=== PATIENT | male | born 1970 | race Caucasian/White ===

== ENCOUNTER 2020-10-02 13:29 | Emergency (ER) | payer OTHER, SELFPAY ==
--- NOTE | 2020-10-02 13:37 | ED_ITS ---
HPI - General Adult General Chief complaint: General Medical Stated complaint: covid screening Time Seen by Provider: 10/02/20 13:37 Source: patient Mode of arrival: ambulatory Limitations: no limitations History of Present Illness HPI narrative: Exposed to brother 2 days ago who tested positive COVID-19 he has antiemetic requesting COVID test. Onset (ago): day(s) (2 days ago ) Severity: mild Treatments prior to arrival: none Related Data Allergies Allergy/AdvReac Type Severity Reaction Status Date / Time iodine Allergy Unknown Verified 09/01/19 00:00 shelfish Allergy Unknown Uncoded 09/01/19 00:00 Shellfish Allergy Unknown SWELLING Uncoded 06/30/20 17:18 shellfish Allergy Unknown anaphylacti Uncoded 09/26/17 00:00 c Review of Systems Review of Systems: Constitutional: No Weight loss, No Fever, No Chills, No Night Sweats, No Fatigue, No Malaise ENT/Mouth: No Hearing loss, No Ear Pain, No Nasal Congestion, No Sinus Pain, No Hoarseness, No sore throat, No Rhinorrhea, No Swallowing Difficulty Eyes: No Eye Pain, No Swelling, No Redness, No Foreign Body, No Discharge, No Vision Changes Cardiovascular: No Chest Pain, No SOB, No Dyspnea on Exertion, No Orthopnea, No Edema, No Palpitations Respiratory: No Cough, No Sputum, No Wheezing, No Dyspnea Gastrointestinal: No Nausea, No Vomiting, No Diarrhea, No Constipation, No abdominal Pain, No Hematochezia, No Melena Musculoskeletal: No joint pain, No Myalgias, No Joint Swelling Skin: No Skin Lesions, No rash Neuro: No Weakness, No Numbness, No Paresthesias, No Loss of Consciousness, No Dizziness, No Headache Psych: No Anxiety/Panic, No Depression, No SI/HI/AH/VH, No Social Issues, Heme/Lymph: No Bruising, No Bleeding,No Lymphadenopathy Endocrine: No Polyuria, No Polydipsia, No Temperature Intolerance Yes all other systems are reviewed and are negative [facility] Social History Social History Advance Directives: No Advance Directives Information Provided: No Physical Exam Vital Signs: Vital Signs: Last Vital Signs Temp 98 F 10/02/20 13:50 Pulse 77 10/02/20 13:50 Resp 18 10/02/20 13:50 Pulse Ox 95 10/02/20 13:50 Body Mass Index 23.7 Reviewed Const: General: cooperative and healthy appearing; No acute distress or intoxicated appearing Nutritional Appearance: average body habitus Orientation/consciousness: patient oriented x3 HENMT: Head: Yes normal to inspection Ears: hearing grossly normal bilaterally Eyes: General: appearance normal, both eyes and all related structures Visual Herrera: normal visual herrera by confrontation Skin: General skin exam: no rashes or lesions noted Neuro: General: patient oriented x3 Extrem: General: Yes normal to inspection Discharge Plan Discharge Clinical Impression: Encounter for laboratory testing for COVID-19 virus Patient Disposition: Home, Self-Care Instructions: Normal Exam (ED) Additional Instructions: RESULTS should return within 72 hours. At this time you will be contacted with either NEGATIVE OR POSITIVE results. -Please wait until we contact you for your results. At this time you will be okay for discharge. Please plan for self quarantine for up to 14 days. Do not expose yourself to others. You may not go to work. If testing does come back negative you may return to activities as long as you are no longer having any symptoms for at least 3 days. Please continue to follow cold instructions and wash your hands frequently. You may take Tylenol as directed on the bottle for pain or fever. Patient seen in the emergency department and should be excused from work until negative test results AND until 72 hours without any symptoms AND at least 10 days have passed since symptoms first appeared or since last exposure to COVID- 19 positive patient CDC Guidelines for home isolation: - Stay away from others - WEAR A MASK if you are sick AND STAY HOME - Cover your mouth and nose with a tissue when you cough or sneeze. Dispose of tissues in a lined trash can and wash your hands immediately with soap and water for at least 20 seconds. If soap and water are not available, clean hands with alcohol-based hand ceo and founder that contains at least 60% alcohol. - Clean your hands often with soap and water for at least 20 seconds - Avoid touching your eyes, nose and mouth with unwashed hands - Do not share dishes, drinking glasses, cups, eating utensils, towels, or bedding with other people in your home. After using these items, wash them thoroughly with soap and water or put in the longshore equipment operator. - Clean high-touch surfaces in your isolation area ( sick room and bathroom) every day; let a caregiver clean and disinfect high-touch surfaces in other areas of the home. Clean the area or item with soap and water or another detergent if it is dirty. Then, use a household disinfectant. - Limit contact with pets and animals: If you must care for a pet, wash your hands before and after interacting with them Referrals: Robert Sr MD [Primary Care Provider] - 1 week (Phone visit)
[2020-10-02 13:50] VITALS: PULSE 77; RESP 18; TEMP 36.6; O2SAT 95; BMI 23.7
== END 2020-10-02 14:06 | disposition home or self-care (01) ==
PROVIDERS: Nurse Practitioner Primary Care; Emergency Provider Emergency Medicine; PCP Internal Medicine
DX: Z20.828 Contact with and (suspected) exposure to other viral communicable diseases (principal)
CPT/HCPCS: 99283; U0003

== ENCOUNTER 2021-04-13 13:08 | Emergency (ER) | payer OTHER, SELFPAY ==
--- NOTE | 2021-04-13 | ECG_ITS ---
Test Reason : DIFFICULTY BREATHING Blood Pressure : / mmHG Vent. Rate : 061 BPM Atrial Rate : 061 BPM P-R Int : 122 ms QRS Dur : 098 ms QT Int : 416 ms P-R-T Axes : 047 051 046 degrees QTc Int : 418 ms Normal sinus rhythm Normal ECG No previous ECGs available Referred By: Generic ED Physician Electronically Signed By:ANGELITA TUTTLE MD
--- NOTE | ~2021-04-13 | XR_ITS ---
EXAMINATION: XR CHEST CLINICAL INFORMATION: Cough, rib pain x2-3 days. COMPARISON: None TECHNIQUE: Frontal view of the chest was obtained. FINDINGS: The lungs are hyperinflated and clear of acute process. Heart size and pulmonary vascularity is normal. No gross bony abnormality seen. XR/XR chest 1V IMPRESSION: Bilateral hyperinflation without any acute process. No major change from 01/13/2007.
[2021-04-13 13:27] VITALS: BP 122/86; PULSE 78; RESP 16; TEMP 36.1; O2SAT 94; BMI 24.4
--- NOTE | 2021-04-13 13:30 | PC.NURSE ---
lungs - slight exp wheezing noted.
[2021-04-13 14:02] LABS: IDNOW Serial# 08D9AD1C
[2021-04-13 14:03] LABS: COVID-19 Test Negative (Negative)
[2021-04-13 16:17] LABS: Hematocrit 46.1 % (42-52); Hemoglobin 15.5 g/dl (14.0-18.0); Mean Corpuscular HGB Conc 33.6 g/dl (31.0-36.0); Mean Corpuscular Hemoglobin 30.1 pg (27.0-33.0); Mean Corpuscular Volume 89.5 fL (80-98); Mean Platelet Volume 9.9 fL (9.4-12.4); Platelet Count 219 X10*3/uL (160-400); Red Blood Count 5.15 X10*6/uL (4.60-5.80); Red Cell Distribution Width 13.4 % (11.0-16.0)
--- NOTE | 2021-04-13 16:31 | ED.SOB ---
HPI - SOB/Dyspnea General Chief Complaint: Dyspnea Stated Complaint: diff breathing Time Seen by Provider: 04/13/21 16:30 Source: patient Mode of arrival: ambulatory Limitations: no limitations History of Present Illness HPI Narrative: Patient with history of 40 pack smoking no other significant past medical history been coughing for last 5- 6 days with mucopurulent phlegm no fever no chills short of breath when taking a deep breath makes him cough wheezing never had similar complaints in the past no chest pain no leg swelling no contact with COVID-19 Related Data Previous Rx's Medication Instructions Recorded albuterol sulfate [ProAir HFA] 2 puff INHALATION Q4-6H PRN #8.5 g 04/13/21 amoxicillin-pot clavulanate 1 tab PO BID #20 tab 04/13/21 [Augmentin] codeine-guaifenesin 10 ml PO Q4-6H PRN #237 ml 04/13/21 prednisone 40 mg PO DAILY #10 tab 04/13/21 Allergies Allergy/AdvReac Type Severity Reaction Status Date / Time iodine Allergy Unknown Verified 09/01/19 00:00 shelfish Allergy Unknown Uncoded 09/01/19 00:00 Shellfish Allergy Unknown SWELLING Uncoded 06/30/20 17:18 shellfish Allergy Unknown anaphylacti Uncoded 09/26/17 00:00 c Review of Systems Review of Systems: Yes all other systems are reviewed and are negative [facility] Social History Social History Patient Tobacco Use Status: Current everyday Tobacco user Advance Directives: No Advance Directives Information Provided: Yes Physical Exam Vital Signs: Vital Signs: Last Vital Signs Temp 96.9 F 04/13/21 13:27 Pulse 82 04/13/21 18:00 Resp 14 04/13/21 18:00 BP 122/86 04/13/21 13:27 Pulse Ox 94 04/13/21 18:00 Body Mass Index 24.4 Appearance: Alert. Oriented X3. No acute distress. Eyes: PERRLA, No Nystagmus ENT: Pharynx normal. Oral Mucosa moist Neck: Normal inspection. Neck supple. CVS: Normal heart rate and rhythm. Pulses normal. Respiratory: No respiratory distress. frequent dry cough,Equal air entry bilateral, ++ wheezing/rhonchi , no rales Abdomen: Soft and nontender. Bowel sounds are present, no mass palpable, no CVA tenderness Skin: Skin warm and dry. Normal skin color. Normal skin turgor. Extremities: No lower extremity edema. No calf tenderness Neuro: Oriented X 3. No motor deficit. MDM - SOB/Dyspnea MDM Narrative Medical decision making narrative: patient is smoker with acute bronchitis chest x-ray negative feeling much better after nebulizing treatment and prednisone will discharge patient on inhaler prednisone and antibiotics Lab Data Attestation: I reviewed the patient's lab results. Result diagrams: 04/13/21 16:03 04/13/21 16:03 Labs: Lab Results 04/13/21 04/13/21 04/13/21 Range/Units 13:40 16:03 16:03 WBC 10.0 (4.8-10.8) X10*3/uL RBC 5.15 (4.60-5.80) X10*6/uL Hgb 15.5 (14.0-18.0) g/dl Hct 46.1 (42-52) % MCV 89.5 (80-98) fL MCH 30.1 (27.0-33.0) pg MCHC 33.6 (31.0-36.0) g/dl RDW 13.4 (11.0-16.0) % Plt Count 219 (160-400) X10*3/uL MPV 9.9 (9.4-12.4) fL Absolute Nucleated RBC 0.000 (0.0-0.012) X10*3/uL Nucleated RBC % (auto) 0.0 (0.0-0.2) /100WBC Sodium 138 (135-145) mmol/L Potassium 4.1 (3.3-5.1) mmol/L Chloride 106 (96-108) mmol/L Carbon Dioxide 22 (22-29) mmol/L Anion Gap 14 (12-20) BUN 13 (9-16) mg/dL Creatinine 0.80 (0.5-1.4) mg/dL Estim Creat Clear Calc 113.7 Estimated GFR > 60 Random Glucose 90 (60-115) mg/dL Calcium 9.6 (8.4-10.2) mg/dL COVID-19 (CHARLEE) Negative (Negative) COVID-19 Clin Com See Note Discharge Plan Discharge Clinical Impression: Acute bronchitis Patient Disposition: Home, Self-Care Instructions: Acute Bronchitis (ED) Additional Instructions: stop smoking use inhaler and take medications as prescribed Prescriptions: New prednisone 20 mg tablet 40 mg PO DAILY Qty: 10 RF: 0 amoxicillin-pot clavulanate [Augmentin] 875-125 mg tablet 1 tab PO BID Qty: 20 RF: 0 codeine-guaifenesin 10-100 mg/5 mL liquid 10 ml PO Q4-6H PRN (Reason: cough) Qty: 237 RF: 0 albuterol sulfate [ProAir HFA] 90 mcg/actuation HFA aerosol inhaler 2 puff inhalation Q4-6H PRN (Reason: shortness of breath or wheezing) Qty: 8.5 RF: 1 Interventions: ED Discharge Assessment Last Done: 04/13/21 18:54 Discharge Date/Time: 04/13/21 18:55
[2021-04-13 16:45] LABS: Anion Gap 14 (12-20); Blood Urea Nitrogen 13 mg/dL (9-16); Calcium 9.6 mg/dL (8.4-10.2); Carbon Dioxide 22 mmol/L (22-29); Chloride 106 mmol/L (96-108); Creatinine Clr Calc Pharmacy 113.7; Estimated Glomerular Filt Rate > 60; Glucose Random 90 mg/dL (60-115); Potassium 4.1 mmol/L (3.3-5.1); Sodium 138 mmol/L (135-145)
[2021-04-13] MEDS: Amoxicillin/Potassium Clav 875 MG TABLET PO (17:15)
[2021-04-13] MEDS: guaiFEN/Codeine SF 200/20/10ML 10 ML LIQUID PO (17:15)
[2021-04-13] MEDS: predniSONE 20 MG TABLET 60 MG PO (17:15)
[2021-04-13 17:21] VITALS: PULSE 65; O2SAT 96
[2021-04-13] MEDS: Albuterol Sulfate (0.083%) 2.5 MG/3 ML VIAL.NEB 5 MG INHALE (17:21)
[2021-04-13] MEDS: Albuterol/Iprat 2.5/0.5MG 3 ML AMPUL.NEB INHALE (17:21)
[2021-04-13 18:00] VITALS: PULSE 82; RESP 14; O2SAT 94
== END 2021-04-13 18:55 | disposition home or self-care (01) ==
PROVIDERS: Emergency Provider Internal Medicine; PCP Internal Medicine
DX: J20.9 Acute bronchitis, unspecified (principal); F17.210 Nicotine dependence, cigarettes, uncomplicated; Z20.822 Contact with and (suspected) exposure to COVID-19
CPT/HCPCS: 36415; 71045; 80048; 85027; 87635; 93005; 94640; 94644; 99284; 99285

== ENCOUNTER → 2021-05-23 15:43 | Outpatient (BNVA) | payer OTHER, SELFPAY | PROVIDERS: PCP Internal Medicine; Visit Provider Internal Medicine Pulmonary Disease | DX: J41.1 Mucopurulent chronic bronchitis (principal) | CPT/HCPCS: 99202 ==

== ENCOUNTER 2021-06-22 15:44 | Outpatient (REF) | payer OTHER, SELFPAY ==
--- NOTE | 2021-06-22 17:37 | PFT_ITS ---
INDICATION: Chronic bronchitis. SPIROMETRY: FEV1 to FVC 50% with an FEV1 of 2.31 L, which is 58% predicted, FVC of 4.61 L, which is 89% predicted. No significant response to bronchodilators noted. Significant small airways disease. Maximum voluntary ventilation 56% predicted. LUNG VOLUMES: Total lung capacity 110% predicted with residual volume 157% predicted. DIFFUSION CAPACITY: DLCO 61% predicted. COMPARISONS: None. INTERPRETATION: There is an obstructive ventilatory defect consistent with moderate to severe COPD. No significant response to bronchodilators noted. There is a moderate decrease in maximum voluntary ventilation secondary to deconditioning and also worsening dynamic inspiratory capacity. Lung volumes with a trend hyperinflation and significant air trapping due to the COPD and there is also mild diffusion impairment secondary to COPD, likely emphysema and other parenchymal lung condition should be considered. Clinical correlation warranted. MD RIO Doyle/IRIS / [id number]
== END 2021-06-22 15:45 | disposition home or self-care (01) ==
LOC: HO.RESP 15:44
PROVIDERS: PCP Internal Medicine; Visit Provider Internal Medicine Pulmonary Disease
DX: J41.1 Mucopurulent chronic bronchitis (principal)
CPT/HCPCS: 94060; 94727; 94729

== ENCOUNTER → 2021-07-04 15:49 | Outpatient (BNVA) | payer OTHER, SELFPAY | PROVIDERS: Visit Provider Internal Medicine Pulmonary Disease | DX: J41.1 Mucopurulent chronic bronchitis (principal) | CPT/HCPCS: 99212 ==

== ENCOUNTER 2022-01-22 11:00 | Outpatient (REF) | payer OTHER, SELFPAY ==
--- NOTE | ~2022-01-22 | XR_ITS ---
EXAMINATION: XR SHOULDER, RIGHT CLINICAL INFORMATION: Pain right shoulder COMPARISON: None TECHNIQUE: AP external rotation, Grashey, scapular Y, and axillary views of the right shoulder. FINDINGS: The glenohumeral joint and right AC joint is intact. No visible acute fracture, dislocation or subluxation seen. There is a radiopaque density overlying the scapula question bone island. Versus soft tissue calcification. No fracture or dislocation seen. XR/XR shoulder RT min 2V IMPRESSION: No acute fracture or dislocation seen. The soft tissue calcification seen overlying the right scapula question sclerotic bone lesion/bone island versus soft tissue calcification.
== END 2022-01-22 11:01 | disposition home or self-care (01) ==
LOC: HO.HMGCX 11:00
PROVIDERS: Visit Provider Internal Medicine
DX: M25.511 Pain in right shoulder (principal)
CPT/HCPCS: 73030

== ENCOUNTER 2022-02-03 08:05 | Outpatient (REF) | payer OTHER, SELFPAY ==
[2022-02-03 08:19] LABS: MANUAL DIFF FLAG NO
[2022-02-03 09:24] LABS: Basophils Absolute Auto 0.1 X10*3/uL (0.0-0.2); Basophils Percent Auto 0.6 % (0-2); Eosinophils Absolute Auto 0.5 X10*3/uL (0.0-0.4); Eosinophils Percent Auto 4.6 % (0-4); Hematocrit 43.9 % (42.0-52.0); Hemoglobin 14.7 g/dl (14.0-18.0); Imm Gran Abs Auto 0.04 X10*3/uL (0.00-0.03); Imm Gran Pct Auto 0.4 % (0.0-0.4); Lymphocytes Absolute Auto 3.7 X10*3/uL (1.2-4.9); Lymphocytes Percent Auto 34.2 % (20-40); Mean Corpuscular HGB Conc 33.5 g/dl (31.0-36.0); Mean Corpuscular Hemoglobin 30.3 pg (27.0-33.0); Mean Corpuscular Volume 90.5 fL (80.0-98.0); Mean Platelet Volume 10.3 fL (9.4-12.4); Monocytes Absolute Auto 0.8 X10*3/uL (0.1-1.2); Monocytes Percent Auto 7.3 % (2-11); Neutrophils Absolute Auto 5.8 x10*3/uL (2.0-8.3); Neutrophils Percent Auto 52.9 % (45-73); Platelet Count 235 X10*3/uL (160-400); Red Blood Count 4.85 X10*6/uL (4.60-5.80); Red Cell Distribution Width 13.3 % (11.0-16.0); White Blood Count 10.9 X10*3/uL (4.8-10.8)
[2022-02-03 09:31] LABS: Appearance Urine CLEAR; Color Urine DK YELLOW; Glucose Urine UA NEG (NEG); Leukocyte Esterase Urine NEG (NEG); Nitrite Urine NEG (NEG); Specific Gravity - Urine >= 1.030 (1.005-1.025); Urine Blood NEG (NEG); Urine Ketones NEG (NEG); Urine Protein NEG (NEG-TRACE)
[2022-02-03 09:44] LABS: Alanine Aminotransferase 17 U/L (0-40); Albumin Level 4.1 g/dL (3.5-5.0); Alkaline Phosphatase 54 U/L (39-117); Anion Gap 11 (12-20); Aspartate Amino Transferase 17 U/L (5-37); Bilirubin Total 0.6 mg/dL (0.0-1.0); Blood Urea Nitrogen 14 mg/dL (9-16); Calcium 9.2 mg/dL (8.4-10.2); Carbon Dioxide 26 mmol/L (22-29); Chloride 105 mmol/L (96-108); Cholesterol 198 mg/dL; Estimated Glomerular Filt Rate > 60; Glucose Fasting 97 mg/dL (60-99); HDL Cholesterol 54 mg/dL; LDL Cholesterol Calculated 128 mg/dl; Potassium 4.3 mmol/L (3.3-5.1); Sodium 138 mmol/L (135-145); Total Protein 7.3 g/dL (6.5-8.0); Triglycerides 81 mg/dL
[2022-02-03 10:08] LABS: Prostate Specific Antigen 1.06 ng/mL (<0.05-4.0); TSH reflex Free T4 0.54 uIU/mL (0.32-4.0); Vitamin D 25-OH Total 15.9 ng/mL (>30)
== END 2022-02-03 08:06 | disposition home or self-care (01) ==
LOC: HO.LAB 08:05
PROVIDERS: PCP Internal Medicine; Visit Provider Internal Medicine
DX: Z00.00 Encounter for general adult medical examination without abnormal findings (principal); Z12.5 Encounter for screening for malignant neoplasm of prostate; E55.9 Vitamin D deficiency, unspecified; E78.00 Pure hypercholesterolemia, unspecified
CPT/HCPCS: 36415; 80053; 80061; 81003; 82306; 84153; 84443; 85025

== ENCOUNTER 2022-07-28 11:24 | Outpatient (REF) | payer OTHER, SELFPAY ==
[2022-07-28 14:50] LABS: Influenza A PCR NEGATIVE (Negative); Influenza B PCR NEGATIVE (Negative); Resp Syncy Virus RNA Qual PCR NEGATIVE (Negative); SARS COV2 PCR INHOUSE POSITIVE (Negative)
== END 2022-07-28 11:25 | disposition home or self-care (01) ==
LOC: HO.LAB 11:24
PROVIDERS: Visit Provider Nurse Practitioner Acute Care
DX: J98.8 Other specified respiratory disorders (principal); Z20.822 Contact with and (suspected) exposure to COVID-19
CPT/HCPCS: 0241U

== ENCOUNTER 2023-01-01 13:51 | Outpatient (REF) | payer OTHER, SELFPAY ==
[2023-01-01 14:40] LABS: Influenza A PCR NEGATIVE (Negative); Influenza B PCR NEGATIVE (Negative); Resp Syncy Virus RNA Qual PCR NEGATIVE (Negative); SARS COV2 PCR INHOUSE NEGATIVE (Negative)
== END 2023-01-01 13:52 | disposition home or self-care (01) ==
LOC: HO.LNP 13:51
PROVIDERS: Visit Provider Physician Assistant
DX: Z20.822 Contact with and (suspected) exposure to COVID-19 (principal); B34.9 Viral infection, unspecified
CPT/HCPCS: 0241U

== ENCOUNTER 2023-01-18 13:14 | Outpatient (REF) | payer OTHER, SELFPAY ==
--- NOTE | ~2023-01-18 | XR_ITS ---
EXAMINATION: XR CHEST CLINICAL INFORMATION: Acute bronchitis COMPARISON: Previous chest x-ray most recent April 2021 TECHNIQUE: 2 views of the chest were obtained. FINDINGS: No significant abnormality is noted involving the heart, lungs, mediastinum, bony thorax or soft tissues. XR/XR chest 2V IMPRESSION: Unremarkable examination.
== END 2023-01-18 13:15 | disposition home or self-care (01) ==
LOC: HO.HMGCX 13:14
PROVIDERS: PCP Internal Medicine; Visit Provider Internal Medicine
DX: J02.9 Acute pharyngitis, unspecified (principal)
CPT/HCPCS: 71046

== ENCOUNTER 2023-10-03 16:42 | Outpatient (REF) | payer OTHER, SELFPAY ==
--- NOTE | ~2023-10-03 | XR_ITS ---
EXAMINATION: XR CHEST CLINICAL INFORMATION: Pneumonia COMPARISON: January 18, 2023 TECHNIQUE: 2 views of the chest were obtained. FINDINGS: No significant abnormality is noted involving the heart, lungs, mediastinum, bony thorax or soft tissues. XR/XR chest 2V IMPRESSION: No acute disease.
== END 2023-10-03 16:43 | disposition home or self-care (01) ==
LOC: HO.XRAY 16:42
PROVIDERS: PCP Internal Medicine; Visit Provider Internal Medicine
DX: J18.9 Pneumonia, unspecified organism (principal)
CPT/HCPCS: 71046

== ENCOUNTER 2023-11-29 16:38 | Outpatient (AMB) | payer OTHER, SELFPAY ==
[2023-11-29 16:41] VITALS: BP 112/74; PULSE 60; O2SAT 93; BMI 27.0
--- NOTE | 2023-11-29 16:41 | MHC.PC.OV ---
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: No Accompanied by: Self / Same As Patient Allergies iodine Allergy (Unknown, Verified 11/29/23 17:10) Unknown shelfish Allergy (Unknown, Uncoded 11/29/23 17:10) Unknown Shellfish Allergy (Unknown, Uncoded 11/29/23 17:10) SWELLING shellfish Allergy (Unknown, Uncoded 11/29/23 17:10) anaphylactic Medication List - Last Reconciled 11/29/23 by Robert Sr MD nicotine 1 patch transdermal DAILY 7 days nicotine 1 patch transdermal Q24H 28 days nicotine (Nicoderm CQ) 1 patch transdermal DAILY 1 day Tobacco use date assessed: 11/29/23 Dental Screening Dental Screen Date: 11/29/23 Did you have a dental visit in the last 12 months?: Yes Did you have a dental problem in the last 6 months where you did not have access to dental care?: No Was dental information given to patient?: Patient has dentist HPI annual physical HPI Details Patient comes in today for his annual physical examination States that he is still experiencing a recurrent cough but otherwise feels okay He coughs up some clear to whitish phlegm at times and states that his cough has improved somewhat since he quit smoking recently - presently still has his nicotine patch on and is still working on quitting smoking completely He does have a follow up appointment with pulmonary at [facility] next week States that he feels okay overall He denies any headaches or dizziness Denies any chest pains, no SOB No nausea/vomiting, no abdominal pain although he has noticed increased heartburns lately since he quit smoking - is not sure if they are from his nicotine patches or not No change in bowel habits noted He denies any acute urinary symptoms Has no follow up labs done recently and he also has not yet had his screening colonoscopy done - was referred for this back in 2020 but he never followed through with this [facility] Medical History Vitamin D deficiency Smoker COPD (chronic obstructive pulmonary disease) Surgical History History of epidermal inclusion cyst excision H/O hemorrhoidectomy History of appendectomy Family History Mother Substance abuse Father Substance abuse Social History Housing: House Alcohol intake: never Patient Tobacco Use Status: Current everyday Tobacco user Cigarette Packs Per Day: 1 Cigarettes Per Day: 20 e-Cigarette/Vaping Use: Never Used Second Hand Smoke Exposure: Yes service: No Current occupational status: employed 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 1. Little interest or pleasure in doing things: not at all 2. Feeling down, depressed, or hopeless: not at all 3. Trouble falling or staying asleep, or sleeping too much: not at all 4. Feeling tired or having little energy: not at all 5. Poor appetite or overeating: not at all 6. Feeling bad about yourself - or that you are a failure or have let yourself or your family down: not at all 7. Trouble concentrating on things, such as reading the newspaper or watching television: not at all 8. Moving or speaking so slowly that other people could have noticed. Or the opposite - being so fidgety or restless that you have been moving around a lot more than usual: not at all 9. Thoughts that you would be better off or of hurting yourself in some way: not at all Total score: 0 Depression Screening Interpretation: Negative Depression Screening Done: Yes [id number] - PHQ-9 Billing: Yes Source: Developed by Drs. Jasmeet Guallpa, Rhonda Villasenor, Franco Massey and colleagues, with an educational thao from [employer]. Thrive Questionnaire Date Thrive assessed: 11/29/23 I am a: Patient What is your living situation today?: I have a steady place to live Within the past 12 months, did the food you bought not last and you didn't have the money to get more?: Never true Within the past 12 months, did you worry whether your food would run out before you got money to buy more?: Never true Do you have trouble paying for medicines?: No Do you have trouble getting transportation to medical appointments?: No Do you have trouble paying your heating and electricity bill?: No Do you have trouble taking care of your child, family member or friend?: No Do you have trouble with day-to-day activities such as bathing, preparing meals, shopping, managing finances, etc.?: No Are you currently unemployed and looking for a job?: No Are you interested in more education?: No Please select the resources that you would like help with: None Currently or been in a relationship where the following occur: no concerns reported THRIVE Score: 0 AUDIT C Alcohol Use Questionnaire (AUDIT-C) 1. How often do you have a drink containing alcohol?: Monthly or less 2. How many drinks containing alcohol do you have on a typical day when you are drinking?: 1 or 2 3. How often do you have six or more drinks on one occasion?: Never Total Score: 1 Score Reviewed/Action Taken: Yes MAXIM-7 AMB Questionnaire MAXIM-7 Date MAXIM - 7 assessed: 11/29/23 Feeling nervous, anxious, or on edge: 0 = Not at all Not being able to stop or control worryin = Not at all Worrying too much about different things: 0 = Not at all Trouble relaxin = Not at all Being so restless that it is hard to sit still: 0 = Not at all Becoming easily annoyed or irritable: 0 = Not at all Feeling afraid as if something awful might happen: 0 = Not at all Total MAXIM-7 score (0-4 normal; 5-9 mild; 10-14 moderate; 15-21 severe): 0 Source: Developed by Drs. Jasmeet Guallpa, Rhonda Villasenor, Franco Massey and colleagues, with an educational thao from [employer]. MAXIM-7 Assessment Billing MAXIM-7 Assessment Tool: MAXIM-7 Assessment 62136 Review of Systems Const Denies chills, Denies fatigue, Denies fever(s), Denies headache(s), Denies malaise and Denies weakness Eyes Denies blurry vision, Denies change in vision, Denies irritation and Denies itchy eyes ENT Denies dysphagia, Denies dizziness, Denies otalgia, Denies headache(s), Denies nasal congestion, Denies neck pain, Denies odynophagia and Denies sore throat Card Denies chest pain, Denies rapid heart rate, Denies irregular heart rhythm, Denies palpitations and Denies dyspnea Resp Reports chest congestion (at times, mild), Reports cough (recurrent, coughs up thick whitish to clear phlegm at times ), Denies hemoptysis, Denies dyspnea and Denies wheezing GI Denies abdominal pain, Denies bloating, Denies constipation, Denies dysphagia, Reports heartburn (increased lately), Denies diarrhea, Denies nausea, Denies odynophagia and Denies vomiting Denies hematuria, Denies difficulty urinating, Denies dysuria, Denies urinary frequency and Denies urinary urgency Musc Denies back pain, Denies arthralgias, Denies joint swelling, Denies muscle weakness and Denies neck pain Skin/Breast Denies change in pigmentation, Denies lesions, Denies rash and Denies unusual bruising Neuro Denies dizziness, Denies headache(s), Denies paresthesias and Denies weakness Endo Denies fatigue and Denies palpitations Aller/Immun Denies itchy eyes and Denies wheezing Physical exam (Primary Care) Vital Signs: Last Vital Signs Pulse 60 11/29/23 16:41 BP 112/74 11/29/23 16:41 Pulse Ox 93 11/29/23 16:41 Oxygen Delivery Method Room Air 11/29/23 16:41 BMI result Body Mass Index 27.0 Tobacco/Smoking Status: Tobacco use Status Tobacco use date assessed 11/29/23 11/29/23 16:44 Patient Tobacco Use Status Current everyday Tobacco 11/29/23 16:44 e-Cigarette/Vaping Use Never Used 11/29/23 16:44 PHQ-9: PHQ-9 Score PHQ-9: Total score 0 11/29/23 17:12 Depression Screening Interpretation: Negative Thrive Assessment: Date of Thrive Assessment Date Thrive assessed 11/29/23 11/29/23 16:44 Currently or been in a relationship where the following occur: no concerns reported Const General: no acute distress, alert and awake Orientation/consciousness: patient oriented x3 HENMT Head: Yes normocephalic and Yes atraumatic Ears: external ears normal, TM's normal bilaterally and EAC's normal General nose exam: No nasal discharge present Face and sinus: Yes normal facial exam and Yes sinuses nontender Teeth and gingiva: dentition normal Throat: Yes posterior oropharynx normal and Yes tonsils normal (no TP congestion) Eyes Eyelids: Yes eyelids normal Conjunctivae: conjunctivae normal Pupils: Equal, round and reactive pupils present EOM: EOMs intact bilaterally Neck Neck: Yes no lymphadenopathy and Yes supple Thyroid: Thyroid normal Resp Auscultation: no rales, rhonchi (scattered) throughout, wheezes (occasional ) expiratory wheezes and upper bilaterally and diminished lung sounds bilateral Cardio Rate: regular rate Rhythm: regular rhythm Heart sounds: no murmurs GI Palpation (GI): Soft to palpation, nontender and No hepatosplenomegaly present Auscultation: normal bowel sounds General: Yes no CVA tenderness Back/Spine/Pelvis Back: no CVA tenderness Thoracic/Lumbar Spine: thoracic and lumbar spine normal to inspection Skin Lesions: no lesions Rashes: no rashes Neuro General: patient oriented x3, moves all extremities, no focal motor deficits and CN's II-XI intact bilaterally Cranial nerves: Yes Equal, round and reactive pupils present Cognition (Neuro): normal cognition Gait exam (Neuro): Normal gait present Extrem General: Yes no clubbing, cyanosis or edema Assessment and Plan Assessment & Plan (1) Annual physical exam: Code(s): Z00.00 - Encounter for general adult medical examination without abnormal findings Plan: Check labs (2) COPD (chronic obstructive pulmonary disease): Code(s): J44.9 - Chronic obstructive pulmonary disease, unspecified Qualifiers: COPD type: chronic bronchitis Chronic bronchitis type: mucopurulent Qualified Code(s): J41.1 - Mucopurulent chronic bronchitis Plan: Chest x-rays done in April 2021 revealed (+) bilateral hyperinflation with no acute changes consistent with COPD Patient states that he does not feel SOB and has not needed to use any inhalers unless he comes down with a respiratory infection or starts experiencing respiratory symptoms Patient has smoked for years and is just recently working on quitting - presently has nicotine patch on Follow up with pulmonary as scheduled - has appt with Dr. Ly next week (3) Elevated BP without diagnosis of hypertension: Code(s): R03.0 - Elevated blood-pressure reading, without diagnosis of hypertension Plan: Improved currently - reinforced low sodium diet Patient is reminded to continue monitoring his blood pressure regularly (4) Vitamin D deficiency: Code(s): E55.9 - Vitamin D deficiency, unspecified Plan: Continue Vitamin D3 2000 units QD (5) Smoker: Code(s): F17.200 - Nicotine dependence, unspecified, uncomplicated Plan: Counseled to continue attempts at smoking cessation He has tried to quit smoking unsuccessfully in the past but is now again on Nicotine patches to help him quit smoking (6) Colon cancer screening: Code(s): Z12.11 - Encounter for screening for malignant neoplasm of colon Plan: Will refer him AGAIN for screening colonoscopy Plan Follow up in 6 months Orders: Orders Comprehensive [employer] Panel Fast Today E78.00 - Pure hypercholesterolemia, unspecified, Z00.00 - Encounter for general adult medical examination without abnormal findings Lipid Panel Today E78.00 - Pure hypercholesterolemia, unspecified, Z00.00 - Encounter for general adult medical examination without abnormal findings TSH reflex Free T4 Today E78.00 - Pure hypercholesterolemia, unspecified, Z00.00 - Encounter for general adult medical examination without abnormal findings Prostate Specific Antigen Today N40.0 - Benign prostatic hyperplasia without lower urinary tract symptoms, Z00.00 - Encounter for general adult medical examination without abnormal findings Complete Blood Count Auto Diff Today D64.9 - Anemia, unspecified, Z00.00 - Encounter for general adult medical examination without abnormal findings UA CC w/rflx Micro + Cult Today R30.0 - Dysuria, Z00.00 - Encounter for general adult medical examination without abnormal findings Vitamin D 25-OH Total Today E55.9 - Vitamin D deficiency, unspecified, Z00.00 - Encounter for general adult medical examination without abnormal findings Hemoglobin A1c Today R73.01 - Impaired fasting glucose, Z00.00 - Encounter for general adult medical examination without abnormal findings Referrals Gastroenterology Referral Z12.11 - Encounter for screening for malignant neoplasm of colon Coding Level of Care Code Est Pt Prev Care 40-64y(76320) Diagnoses Annual physical exam Z00.00 Mucopurulent chronic bronchitis J41.1 COPD type: chronic bronchitis Chronic bronchitis type: mucopurulent Elevated BP without diagnosis of hypertension R03.0 Vitamin D deficiency E55.9 Smoker F17.200 Colon cancer screening Z12.11 Additional Codes MAXIM-7 Assessment Billing - MAXIM-7 Assessment Tool: MAXIM-7 Assessment [id number] ([id number])
== END 2023-11-29 17:20 | disposition home or self-care (01) ==
PROVIDERS: PCP Internal Medicine; Visit Provider Internal Medicine
DX: Z00.00 Encounter for general adult medical examination without abnormal findings (principal); J41.1 Mucopurulent chronic bronchitis; R03.0 Elevated blood-pressure reading, without diagnosis of hypertension; E55.9 Vitamin D deficiency, unspecified; F17.200 Nicotine dependence, unspecified, uncomplicated; Z12.11 Encounter for screening for malignant neoplasm of colon
CPT/HCPCS: 99396

== ENCOUNTER 2023-12-04 15:06 | Outpatient (AMB) | payer OTHER, SELFPAY ==
--- NOTE | 2023-12-04 15:09 | A.OFFVIS_ITS ---
Intake Vital Signs 12/04/23 15:11 Height 5 ft 9 in Weight 187 lb BMI 27.6 BP 108/72 Blood Pressure Location Lt brachial Position Sitting Pulse 75 Pulse Source Doppler Pulse Oximetry (%) 95 Oxygen Delivery Method Room Air Intake Visit Reasons: COPD Allergies iodine Allergy (Unknown, Verified 12/04/23 15:16) Unknown shelfish Allergy (Unknown, Uncoded 11/29/23 17:10) Unknown Shellfish Allergy (Unknown, Uncoded 11/29/23 17:10) SWELLING shellfish Allergy (Unknown, Uncoded 11/29/23 17:10) anaphylactic HPI COPD HPI Details 53-year-old gentleman, active 40+ pack-y ear smoker previous followed for moderate COPD lost to follow-up for approximately 3 years, now returns to reestablish care. Patient continues to complain dyspnea on exertion. He was not able to obtain inhaled bronchodilators. He is trying to quit smoking using nicotine patches. [facility] Medical History Vitamin D deficiency Smoker COPD (chronic obstructive pulmonary disease) Surgical History History of epidermal inclusion cyst excision H/O hemorrhoidectomy History of appendectomy Family History Mother Substance abuse Father Substance abuse Social History (Updated 12/04/23 @ 15:17 by Jazz Dorsey [facility]) Housing: House Alcohol intake: never Patient Tobacco Use Status: Current everyday Tobacco user Tobacco use type: Cigarette Cigarette Packs Per Day: 1 Cigarettes Per Day: 20 e-Cigarette/Vaping Use: Never Used Second Hand Smoke Exposure: Yes service: No Current occupational status: employed 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 Cognitive needs: No Hearing needs: No Vision needs: Yes Review of Systems Const Denies daytime sleepiness, Denies excessive sweating, Denies fatigue, Denies fever(s), Denies lethargy, Denies malaise, Denies night sweats, Denies snoring and Denies weight loss Eyes Denies blurry vision and Denies itchy eyes ENT Denies nasal congestion, Denies post nasal drip, Denies sinus pain, Denies sinus pressure and Denies other ( Thrush) Card Denies chest pain, Denies pedal edema, Denies dyspnea, Reports dyspnea on exertion, Denies orthopnea and Denies paroxysmal nocturnal dyspnea Resp Denies cough, Denies hemoptysis, Denies excessive phlegm production, Denies dyspnea, Reports dyspnea on exertion, Denies snoring and Reports wheezing GI Denies abdominal pain and Denies heartburn Musc Denies myalgias, Denies arthralgias and Denies joint swelling Skin/Breast Denies rash Neuro Denies memory loss and Denies seizure-like activity Psych Denies abnormal sleep pattern, Denies anxiety and Denies memory loss Endo Denies excessive sweating, Denies fatigue and Denies heat intolerance Andrea/Lymph Denies easy bruising Aller/Immun Denies itchy eyes, Denies seasonal rhinorrhea and Reports wheezing Physical Exam Vital Signs: Last Vital Signs Pulse 75 12/04/23 15:11 BP 108/72 12/04/23 15:11 Pulse Ox 95 12/04/23 15:11 Oxygen Delivery Method Room Air 12/04/23 15:11 BMI result Body Mass Index 27.6 Const General: no acute distress and alert Nutritional Appearance: not obese Orientation/consciousness: Other orientation findings ( oriented) HEENT Head: Yes atraumatic Eyes General: appearance normal, both eyes and all related structures Sclerae: sclerae normal EOM: EOMs intact bilaterally Neck Neck: Yes supple Lymphatic: no lymphadenopathy noted Resp Effort & Inspection: normal respiratory effort and no use of accessory muscles Auscultation: clear to auscultation bilaterally Cardio Rate: regular rate Rhythm: regular rhythm Heart sounds: no gallops, no murmurs and no rubs Skin General skin exam: other ( warm) Extrem General: No clubbing, No cyanosis and No edema Assessment & Plan Assessment & Plan (1) COPD (chronic obstructive pulmonary disease): Code(s): J44.9 - Chronic obstructive pulmonary disease, unspecified Qualifiers: COPD type: chronic bronchitis Chronic bronchitis type: mucopurulent Qualified Code(s): J41.1 - Mucopurulent chronic bronchitis Plan: Suboptimally controlled. At least moderate. Start Anoro, duo nebs, and albuterol MDI. (2) Personal history of nicotine dependence: Code(s): Z87.891 - Personal history of nicotine dependence Plan: Will obtain lung cancer screening CT chest. Orders: Orders CT lung screening Today Z87.891 - Personal history of nicotine dependence Medications: New Anoro Ellipta 62.5-25 mcg/actuation (umeclidinium-vilanterol) 1 inh inhalation DAILY 1 ea 6RF 30 days NS ipratropium-albuterol 0.5 mg-3 mg(2.5 mg base)/3 mL 3 mL inhalation Q4-6H PRN 270 mL 6RF wheezing 30 days Coding Level of Care Code New Pt Level 4 (94753) Diagnoses Mucopurulent chronic bronchitis J41.1 COPD type: chronic bronchitis Chronic bronchitis type: mucopurulent Personal history of nicotine dependence Z87.897
[2023-12-04 15:11] VITALS: BP 108/72; PULSE 75; O2SAT 95; BMI 27.6
== END 2023-12-04 15:35 | disposition home or self-care (01) ==
PROVIDERS: PCP Internal Medicine; Visit Provider Internal Medicine Pulmonary Disease
DX: J41.1 Mucopurulent chronic bronchitis (principal); Z87.891 Personal history of nicotine dependence
CPT/HCPCS: 99214

== ENCOUNTER → 2023-12-04 15:06 | Outpatient (BNVA) | payer OTHER, SELFPAY | PROVIDERS: PCP Internal Medicine; Visit Provider Internal Medicine Pulmonary Disease | DX: J41.1 Mucopurulent chronic bronchitis (principal); Z87.891 Personal history of nicotine dependence | CPT/HCPCS: 99212 ==

== ENCOUNTER 2024-01-13 16:15 | Outpatient (REF) | payer OTHER, SELFPAY ==
--- NOTE | ~2024-01-13 | CT_ITS ---
EXAMINATION: CT CHEST SCREENING CLINICAL INFORMATION: Current smoker. 1 pack per day with history of 40 pack-years. COMPARISON: Chest radiograph 10/03/2023 TECHNIQUE: Multidetector volumetric CT imaging of the chest is performed without contrast using low dose technique. Additional 2D coronal and sagittal reformatted images and axial 3D maximum intensity projection (MIP) images are generated on the CT workstation. This CT examination was performed using dose optimization techniques as appropriate, variously including the following: *Automated exposure control *Adjustment of mA and/or kV according to patient size (this includes techniques or standardized protocols for targeted exams where dose is matched to indication/reason for exam; i.e. extremities or head) *Use of iterative reconstruction technique DLP: 64 mGy-cm FINDINGS: LUNGS: Mild emphysematous changes are present. Mild saber sheath trachea seen. [id number] bronchial wall thickening is present. Some minimal basilar atelectasis is seen. At least 4 punctate calcified granulomas seen in the right lung. The lungs are otherwise clear with no evidence of inflammation or worrisome nodules. MEDIASTINUM: Nonenlarged 0.9 cm right precarinal lymph node. No mediastinal or hilar lymphadenopathy. CORONARY ARTERY CALCIFICATION: None visualized on this study. PLEURA: There is no pleural effusion. No pleural mass or thickening. AXILLA: No lymphadenopathy. UPPER ABDOMEN: Unremarkable. OSSEOUS STRUCTURES: Unremarkable. CT/CT lung screening IMPRESSION: Unremarkable examination. ASSESSMENT: Lung-RADS category 1: Negative RECOMMENDATION: Routine annual low-dose CT screening in 12 months.
== END 2024-01-13 16:16 | disposition home or self-care (01) ==
LOC: HO.CT 16:15
PROVIDERS: PCP Internal Medicine; Visit Provider Internal Medicine Pulmonary Disease
DX: Z12.2 Encounter for screening for malignant neoplasm of respiratory organs (principal); Z87.891 Personal history of nicotine dependence
CPT/HCPCS: 71271

== ENCOUNTER 2024-02-25 15:05 | Outpatient (AMB) | payer OTHER, SELFPAY ==
[2024-02-25 15:09] VITALS: BP 104/72; PULSE 84; O2SAT 94; BMI 27.0
--- NOTE | 2024-02-25 15:09 | MHC.OFFVIS ---
Vital Signs 02/25/24 15:09 Height 5 ft 9 in Weight 182 lb 15.739 oz BMI 27.0 BP 104/72 Blood Pressure Location Lt brachial Position Sitting Pulse 84 Pulse Source Doppler Pulse Oximetry (%) 94 Oxygen Delivery Method Room Air Intake Visit Reasons: COPD Allergies iodine Allergy (Unknown, Verified 02/25/24 15:12) Unknown shelfish Allergy (Unknown, Uncoded 11/29/23 17:10) Unknown Shellfish Allergy (Unknown, Uncoded 11/29/23 17:10) SWELLING shellfish Allergy (Unknown, Uncoded 11/29/23 17:10) anaphylactic HPI HPI COPD: Details: 53-year-old gentleman, active 40+ pack-year smoker previous followed for moderate COPD lost to follow-up for approximately 3 years, now returns to reestablish care. Patient continues to complain dyspnea on exertion. He was not able to obtain inhaled bronchodilators. He is trying to quit smoking using nicotine patches. After the last office visit patient was started on Anoro and reports significantly improved symptom control. He does complain of worsening environmental allergies. He completed his lung cancer screening CT chest that showed no worrisome pulmonary nodules. [facility] Medical History Vitamin D deficiency Smoker COPD (chronic obstructive pulmonary disease) Surgical History History of epidermal inclusion cyst excision H/O hemorrhoidectomy History of appendectomy Family History Mother Substance abuse Father Substance abuse Social History (Updated 02/25/24 @ 15:14 by Jazz Dorsey PENDING SALE TO [facility]) Housing: House Alcohol intake: never Patient Tobacco Use Status: Current everyday Tobacco user Tobacco use type: Cigarette Cigarette Packs Per Day: 0.5 Cigarettes Per Day: 10 e-Cigarette/Vaping Use: Never Used Second Hand Smoke Exposure: Yes service: No Current occupational status: employed 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 Cognitive needs: No Hearing needs: No Vision needs: Yes Review of Systems Const Denies daytime sleepiness, Denies excessive sweating, Denies fatigue, Denies fever(s), Denies lethargy, Denies malaise, Denies night sweats, Denies snoring and Denies weight loss Eyes Denies blurry vision and Reports itchy eyes ENT Denies nasal congestion, Denies post nasal drip, Denies sinus pain, Denies sinus pressure and Denies other ( Thrush) Card Denies chest pain, Denies pedal edema, Denies dyspnea, Denies orthopnea and Denies paroxysmal nocturnal dyspnea Resp Denies cough, Denies hemoptysis, Denies excessive phlegm production, Denies dyspnea, Denies snoring and Denies wheezing GI Denies abdominal pain and Denies heartburn Musc Denies myalgias, Denies arthralgias and Denies joint swelling Skin/Breast Denies rash Neuro Denies memory loss and Denies seizure-like activity Psych Denies abnormal sleep pattern, Denies anxiety and Denies memory loss Endo Denies excessive sweating, Denies fatigue and Denies heat intolerance Andrea/Lymph Denies easy bruising Aller/Immun Reports itchy eyes, Reports seasonal rhinorrhea and Denies wheezing Physical Exam Vital Signs: Last Vital Signs Pulse 84 02/25/24 15:09 BP 104/72 02/25/24 15:09 Pulse Ox 94 02/25/24 15:09 Oxygen Delivery Method Room Air 02/25/24 15:09 BMI result Body Mass Index 27.0 Const General: no acute distress and alert Nutritional Appearance: not obese Orientation/consciousness: Other orientation findings ( oriented) HEENT Head: Yes atraumatic Eyes General: appearance normal, both eyes and all related structures Sclerae: sclerae normal EOM: EOMs intact bilaterally Neck Neck: Yes supple Lymphatic: no lymphadenopathy noted Resp Effort & Inspection: normal respiratory effort and no use of accessory muscles Auscultation: clear to auscultation bilaterally Cardio Rate: regular rate Rhythm: regular rhythm Heart sounds: no gallops, no murmurs and no rubs Skin General skin exam: other ( warm) Extrem General: No clubbing, No cyanosis and No edema Assessment & Plan Assessment & Plan (1) COPD (chronic obstructive pulmonary disease): Code(s): J44.9 - Chronic obstructive pulmonary disease, unspecified Category: Medical Qualifiers: COPD type: chronic bronchitis Chronic bronchitis type: mucopurulent Qualified Code(s): J41.1 - Mucopurulent chronic bronchitis Plan: Well controlled on current regimen of Anoro and duo nebs. Continue current regimen. (2) Environmental allergies: Code(s): Z91.09 - Other allergy status, other than to drugs and biological substances Category: Medical Plan: Worsening seasonal symptoms. Will start on Zyrtec and Flonase. (3) Personal history of nicotine dependence: Code(s): Z87.891 - Personal history of nicotine dependence Category: Medical Plan: Results of lung cancer screening CT chest reviewed, no worrisome nodules at this time, will repeat in 12 months. Orders: Orders PFT pulmonary function test Today J41.1 - Mucopurulent chronic bronchitis Medications: New cetirizine 10 mg PO BID 30 days 60 tabs 2RF fluticasone propionate 50 mcg/actuation (Flonase Allergy Relief) administer into each nostril 1 spray intranasal BID 16 grams 2RF Coding Level of Care Code Est Pt Level 4 (11076) Diagnoses Mucopurulent chronic bronchitis J41.1 COPD type: chronic bronchitis Chronic bronchitis type: mucopurulent Environmental allergies Z91.09 Personal history of nicotine dependence Z87.891
== END 2024-02-25 15:21 | disposition home or self-care (01) ==
PROVIDERS: PCP Internal Medicine; Visit Provider Internal Medicine Pulmonary Disease
DX: J41.1 Mucopurulent chronic bronchitis (principal); Z91.09 Other allergy status, other than to drugs and biological substances; Z87.891 Personal history of nicotine dependence
CPT/HCPCS: 99214

== ENCOUNTER → 2024-02-25 15:05 | Outpatient (BNVA) | payer OTHER, SELFPAY | PROVIDERS: PCP Internal Medicine; Visit Provider Internal Medicine Pulmonary Disease | DX: J41.1 Mucopurulent chronic bronchitis (principal); Z79.899 Other long term (current) drug therapy; Z91.09 Other allergy status, other than to drugs and biological substances; Z87.891 Personal history of nicotine dependence | CPT/HCPCS: 99212 ==

== ENCOUNTER 2024-04-11 08:24 | Outpatient (REF) | payer OTHER, SELFPAY ==
[2024-04-11 08:45] LABS: MANUAL DIFF FLAG NO
[2024-04-11 09:09] LABS: Basophils Absolute Auto 0.1 X10*3/uL (0.0-0.2); Basophils Percent Auto 0.7 % (0-2); Eosinophils Absolute Auto 0.4 X10*3/uL (0.0-0.4); Eosinophils Percent Auto 4.5 % (0-4); Hematocrit 43.7 % (42.0-52.0); Hemoglobin 14.6 g/dl (14.0-18.0); Imm Gran Abs Auto 0.03 X10*3/uL (0.00-0.03); Imm Gran Pct Auto 0.3 % (0.0-0.4); Lymphocytes Absolute Auto 3.2 X10*3/uL (1.2-4.9); Lymphocytes Percent Auto 34.5 % (20-40); Mean Corpuscular HGB Conc 33.4 g/dl (31.0-36.0); Mean Corpuscular Hemoglobin 30.4 pg (27.0-33.0); Mean Corpuscular Volume 90.9 fL (80.0-98.0); Mean Platelet Volume 9.9 fL (9.4-12.4); Monocytes Absolute Auto 0.7 X10*3/uL (0.1-1.2); Monocytes Percent Auto 7.9 % (2-11); Neutrophils Absolute Auto 4.8 x10*3/uL (2.0-8.3); Neutrophils Percent Auto 52.1 % (45-73); Platelet Count 214 X10*3/uL (160-400); Red Blood Count 4.81 X10*6/uL (4.60-5.80); Red Cell Distribution Width 13.2 % (11.0-16.0); White Blood Count 9.2 X10*3/uL (4.8-10.8)
[2024-04-11 09:15] LABS: Appearance Urine Clear; Color Urine Yellow; Glucose Urine UA Negative (Negative); Leukocyte Esterase Urine Negative (Negative); Nitrite Urine Negative (Negative); Specific Gravity - Urine 1.025 (1.005-1.025); Urine Blood Negative (Negative); Urine Ketones Negative (Negative); Urine Protein Negative (Neg-Trace)
[2024-04-11 09:21] LABS: Estimated Average Glucose 111 mg/dL; Hemoglobin A1c % 5.5 % (<6.0)
[2024-04-11 09:46] LABS: Alanine Aminotransferase 10 U/L (0-40); Albumin Level 4.1 g/dL (3.5-5.0); Alkaline Phosphatase 52 U/L (39-117); Anion Gap 13 (12-20); Aspartate Amino Transferase 15 U/L (5-37); Bilirubin Total 0.4 mg/dL (0.0-1.0); Blood Urea Nitrogen 14 mg/dL (9-16); Calcium 8.9 mg/dL (8.4-10.2); Carbon Dioxide 23 mmol/L (22-29); Chloride 107 mmol/L (96-108); Cholesterol 159 mg/dL (<200); Estimated Glomerular Filt Rate > 60; Glucose Fasting 94 mg/dL (60-99); HDL Cholesterol 46 mg/dL (>40); LDL Cholesterol Calculated 95 mg/dL (<100); Potassium 4.3 mmol/L (3.3-5.1); Sodium 139 mmol/L (135-145); Total Protein 7.5 g/dL (6.5-8.0); Triglycerides 93 mg/dL (<150)
[2024-04-11 10:05] LABS: Vitamin D 25-OH Total 28.7 ng/mL (>30)
== END 2024-04-11 08:25 | disposition home or self-care (01) ==
LOC: HO.LAB 08:24
PROVIDERS: PCP Internal Medicine; Visit Provider Internal Medicine
DX: Z00.00 Encounter for general adult medical examination without abnormal findings (principal); E78.00 Pure hypercholesterolemia, unspecified; D64.9 Anemia, unspecified; E55.9 Vitamin D deficiency, unspecified; R73.01 Impaired fasting glucose; N40.0 Benign prostatic hyperplasia without lower urinary tract symptoms; R30.0 Dysuria
CPT/HCPCS: 36415; 80053; 80061; 81003; 82306; 83036; 84153; 84443; 85025

== ENCOUNTER 2024-05-22 16:49 | Outpatient (AMB) | payer OTHER, SELFPAY ==
[2024-05-22 16:53] VITALS: BP 108/70; PULSE 68; O2SAT 96; BMI 26.6
--- NOTE | 2024-05-22 16:53 | A.OFFPC_ITS ---
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 Accompanied by: Self / Same As Patient Allergies iodine Allergy (Unknown, Verified 05/22/24 17:13) Unknown shelfish Allergy (Unknown, Uncoded 05/22/24 17:13) Unknown Shellfish Allergy (Unknown, Uncoded 05/22/24 17:13) SWELLING shellfish Allergy (Unknown, Uncoded 05/22/24 17:13) anaphylactic Medication List - Last Reconciled 05/22/24 by Robert Sr MD Anoro Ellipta 62.5-25 mcg/actuation (umeclidinium-vilanterol) 1 inh inhalation DAILY 30 days NS cetirizine 10 mg PO BID 30 days fluticasone propionate 50 mcg/actuation (Flonase Allergy Relief) 1 spray intranasal BID ipratropium bromide intranasal ipratropium-albuterol 0.5 mg-3 mg(2.5 mg base)/3 mL 3 mL inhalation Q4-6H PRN 30 days nicotine 1 patch transdermal DAILY 7 days nicotine 1 patch transdermal Q24H 28 days nicotine (Nicoderm CQ) 1 patch transdermal DAILY 1 day Tobacco use date assessed: 11/29/23 Dental Screening Dental Screen Date: 11/29/23 HPI 6 month f/u HPI Details Patient comes in today for his follow up visit States that he feels okay He denies any headaches or dizziness Denies any chest pains, no increased SOB - he was seen by Dr. Ly a few months ago for pulmonary follow up and was advised to continue on his current inhalers No nausea/vomiting, no abdominal pain No change in bowel habits noted He had his follow up labs done about a month ago - to discuss his results [facility] Medical History Vitamin D deficiency Smoker COPD (chronic obstructive pulmonary disease) Surgical History History of epidermal inclusion cyst excision H/O hemorrhoidectomy History of appendectomy Family History Mother Substance abuse Father Substance abuse Social History Housing: House Alcohol intake: never Patient Tobacco Use Status: Current everyday Tobacco user Tobacco use type: Cigarette Cigarette Packs Per Day: 0.5 Cigarettes Per Day: 10 e-Cigarette/Vaping Use: Never Used Second Hand Smoke Exposure: Yes service: No Current occupational status: employed 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 Jasmeet Guallpa, Rhonda Villasenor, Franco Massey and colleagues, with an educational thao from [employer]. Review of Systems Const Denies chills, Denies fatigue, Denies fever(s) and Denies headache(s) ENT Denies dysphagia, Denies dizziness, Denies otalgia, Denies headache(s), Denies neck pain, Denies odynophagia and Denies sore throat Card Denies chest pain, Denies palpitations and Denies dyspnea Resp Denies cough, Denies dyspnea and Denies wheezing GI Denies abdominal pain, Denies constipation, Denies dysphagia, Denies heartburn, Denies diarrhea, Denies nausea, Denies odynophagia and Denies vomiting Denies dysuria, Denies nocturia and Denies urinary frequency Musc Reports back pain (occasional), Denies arthralgias and Denies neck pain Skin/Breast Denies rash Neuro Denies dizziness and Denies headache(s) Endo Denies fatigue and Denies palpitations Aller/Immun Denies wheezing Physical exam (Primary Care) Vital Signs: Last Vital Signs Pulse 68 05/22/24 16:53 BP 108/70 05/22/24 16:53 Pulse Ox 96 05/22/24 16:53 BMI result Body Mass Index 26.6 Tobacco/Smoking Status: Tobacco use Status Tobacco use date assessed 11/29/23 05/22/24 16:53 Patient Tobacco Use Status Current everyday Tobacco 05/22/24 16:53 Tobacco use type Cigarette 05/22/24 16:53 e-Cigarette/Vaping Use Never Used 05/22/24 16:53 Thrive Assessment: Date of Thrive Assessment Date Thrive assessed 11/29/23 05/22/24 16:53 Const General: no acute distress and alert HENMT Ears: TM's normal bilaterally and EAC's normal Throat: Yes posterior oropharynx normal and Yes tonsils normal (no TP congestion) Neck Neck: Yes no lymphadenopathy and Yes supple Thyroid: Thyroid normal Resp Auscultation: clear to auscultation bilaterally, no rales and no wheezes Cardio Rate: regular rate Rhythm: regular rhythm Heart sounds: no murmurs GI Palpation (GI): Soft to palpation and nontender Auscultation: normal bowel sounds General: Yes no CVA tenderness Back/Spine/Pelvis Back: no CVA tenderness Thoracic/Lumbar Spine: lumbar spinal tenderness (mild) Skin Rashes: no rashes Extrem General: Yes no clubbing, cyanosis or edema Results Reviewed Results Reviewed: Laboratory Tests 04/11/24 04/11/24 08:40 08:44 WBC 9.2 Hgb 14.6 Hct 43.7 Plt Count 214 Sodium 139 Potassium 4.3 Creatinine 0.94 Estimated GFR > 60 Fasting Glucose 94 Hemoglobin A1c % 5.5 Calcium 8.9 AST 15 ALT 10 Triglycerides 93 Cholesterol 159 LDL Cholesterol, Calc 95 HDL Cholesterol 46 Prostate Specific Ag 1.00 25-OH Vitamin D Total 28.7 L TSH 0.40 Ur Specific [place] 1.025 Urine Protein Negative Urine Glucose (UA) Negative Urine Blood Negative Urine Nitrite Negative Ur Leukocyte Esterase Negative Assessment and Plan Assessment & Plan (1) COPD (chronic obstructive pulmonary disease): Code(s): J44.9 - Chronic obstructive pulmonary disease, unspecified Qualifiers: COPD type: chronic bronchitis Chronic bronchitis type: mucopurulent Qualified Code(s): J41.1 - Mucopurulent chronic bronchitis Plan: Chest x-rays done in April 2021 revealed (+) bilateral hyperinflation with no acute changes consistent with COPD Patient states that he does not feel SOB and has not needed to use any inhalers unless he comes down with a respiratory infection or starts experiencing respiratory symptoms Patient has smoked for years and is just continuing to work on quitting Follow up with pulmonary as scheduled (2) Elevated BP without diagnosis of hypertension: Code(s): R03.0 - Elevated blood-pressure reading, without diagnosis of hypertension Plan: Improved currently - reinforced low sodium diet Patient is reminded to continue monitoring his blood pressure regularly Results of his labs done about a month ago reviewed and discussed with patient - advised that his labs are normal other than his low vitamin D level; his cholesterol numbers are also normal and have improved from a couple of years ago (3) Vitamin D deficiency: Code(s): E55.9 - Vitamin D deficiency, unspecified Plan: Continue Vitamin D3 2000 units QD (4) Smoker: Code(s): F17.200 - Nicotine dependence, unspecified, uncomplicated Plan: Counseled to continue attempts at smoking cessation He has tried to quit smoking unsuccessfully in the past but is now again trying to work on quitting smoking Plan To return in 6 months for his next annual physical examination Coding Level of Care Code Est Pt Level 4 (19247) Diagnoses Mucopurulent chronic bronchitis J41.1 COPD type: chronic bronchitis Chronic bronchitis type: mucopurulent Elevated BP without diagnosis of hypertension R03.0 Vitamin D deficiency E55.9 Smoker F17.200
== END 2024-05-22 17:16 | disposition home or self-care (01) ==
PROVIDERS: PCP Internal Medicine; Visit Provider Internal Medicine
DX: J41.1 Mucopurulent chronic bronchitis (principal); R03.0 Elevated blood-pressure reading, without diagnosis of hypertension; E55.9 Vitamin D deficiency, unspecified; F17.200 Nicotine dependence, unspecified, uncomplicated
CPT/HCPCS: 99214

== ENCOUNTER 2024-08-13 15:42 | Outpatient (REF) | payer OTHER, SELFPAY ==
--- NOTE | 2024-08-13 15:45 | PFT_ITS ---
Indication: COPD Spirometry [FEV1 to FVC 52%; FEV1 2.82 L; FVC 5.45L. No significant response to bronchodilators noted. Maximum voluntary ventilation 72% predicted] Lung Volumes [Total lung capacity 108% predicted; residual volume 120% predicted] Diffusion Capacity [DLCO 77% predicted] Comparisons [None] Interpretation [There is an obstructive ventilatory defect consistent with moderate COPD. No significant response to bronchodilators noted. Mild decrease in the maximum voluntary ventilation secondary to likely deconditioning. The patient does have significant air trapping. There is a mild diffusion impairment. Clinical correlation warranted] MTDD
== END 2024-08-13 15:43 | disposition home or self-care (01) ==
LOC: HO.RESP 15:42
PROVIDERS: PCP Internal Medicine; Visit Provider Internal Medicine Pulmonary Disease
DX: J41.1 Mucopurulent chronic bronchitis (principal)
CPT/HCPCS: 94010; 94640; 94727; 94729

== ENCOUNTER → 2024-08-13 15:45 | Outpatient (BNV) | payer OTHER, SELFPAY | PROVIDERS: PCP Internal Medicine; Visit Provider Hospitalist | DX: J41.1 Mucopurulent chronic bronchitis (principal) | CPT/HCPCS: 94060; 94727; 94729 ==

== ENCOUNTER 2024-09-29 15:38 | Outpatient (AMB) | payer OTHER, SELFPAY ==
[2024-09-29 15:50] VITALS: BP 102/66; PULSE 76; O2SAT 96; BMI 26.9
--- NOTE | 2024-09-29 15:50 | MHC.OFFVIS ---
Vital Signs 09/29/24 15:50 Height 5 ft 9 in Weight 181 lb 14.102 oz BMI 26.9 BP 102/66 Blood Pressure Location Lt brachial Position Sitting Pulse 76 Pulse Source Doppler Pulse Oximetry (%) 96 Oxygen Delivery Method Room Air Intake Visit Reasons: copd Allergies iodine Allergy (Unknown, Verified 05/22/24 17:13) Unknown shelfish Allergy (Unknown, Uncoded 05/22/24 17:13) Unknown Shellfish Allergy (Unknown, Uncoded 05/22/24 17:13) SWELLING shellfish Allergy (Unknown, Uncoded 05/22/24 17:13) anaphylactic HPI HPI copd: Details: 53-year-old gentleman, active 40+ pack-year smoker previous followed for moderate COPD. He continues on Anoro and albuterol MDI with good control of his symptoms. [facility] Medical History Vitamin D deficiency Smoker COPD (chronic obstructive pulmonary disease) Surgical History History of epidermal inclusion cyst excision H/O hemorrhoidectomy History of appendectomy Family History Mother Substance abuse Father Substance abuse Social History Housing: House Alcohol intake: never Patient Tobacco Use Status: Current everyday Tobacco user Tobacco use type: Cigarette Cigarette Packs Per Day: 0.5 Cigarettes Per Day: 10 e-Cigarette/Vaping Use: Never Used Second Hand Smoke Exposure: Yes service: No Current occupational status: employed 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 Cognitive needs: No Hearing needs: No Vision needs: Yes Review of Systems Const Denies daytime sleepiness, Denies excessive sweating, Denies fatigue, Denies fever(s), Denies lethargy, Denies malaise, Denies night sweats, Denies snoring and Denies weight loss Eyes Denies blurry vision and Denies itchy eyes ENT Denies nasal congestion, Denies post nasal drip, Denies sinus pain, Denies sinus pressure and Denies other ( Thrush) Card Denies chest pain, Denies pedal edema, Denies dyspnea, Denies orthopnea and Denies paroxysmal nocturnal dyspnea Resp Denies cough, Denies hemoptysis, Denies excessive phlegm production, Denies dyspnea, Denies snoring and Denies wheezing GI Denies abdominal pain and Denies heartburn Musc Denies myalgias, Denies arthralgias and Denies joint swelling Skin/Breast Denies rash Neuro Denies memory loss and Denies seizure-like activity Psych Denies abnormal sleep pattern, Denies anxiety and Denies memory loss Endo Denies excessive sweating, Denies fatigue and Denies heat intolerance Andrea/Lymph Denies easy bruising Aller/Immun Denies itchy eyes, Denies seasonal rhinorrhea and Denies wheezing Physical Exam Vital Signs: Last Vital Signs Pulse 76 09/29/24 15:50 BP 102/66 09/29/24 15:50 Pulse Ox 96 09/29/24 15:50 Oxygen Delivery Method Room Air 09/29/24 15:50 BMI result Body Mass Index 26.9 Const General: no acute distress and alert Nutritional Appearance: not obese Orientation/consciousness: Other orientation findings ( oriented) HEENT Head: Yes atraumatic Eyes General: appearance normal, both eyes and all related structures Sclerae: sclerae normal EOM: EOMs intact bilaterally Neck Neck: Yes supple Lymphatic: no lymphadenopathy noted Resp Effort & Inspection: normal respiratory effort and no use of accessory muscles Auscultation: clear to auscultation bilaterally Cardio Rate: regular rate Rhythm: regular rhythm Heart sounds: no gallops, no murmurs and no rubs Skin General skin exam: other ( warm) Extrem General: No clubbing, No cyanosis and No edema Assessment & Plan Assessment & Plan (1) COPD (chronic obstructive pulmonary disease): Code(s): J44.9 - Chronic obstructive pulmonary disease, unspecified Category: Medical Qualifiers: COPD type: chronic bronchitis Chronic bronchitis type: mucopurulent Qualified Code(s): J41.1 - Mucopurulent chronic bronchitis Plan: Results of pulmonary function test reviewed, underlying moderate COPD, now well controlled on Anoro, duo nebs, and albuterol MDI. Continue current regimen. (2) Personal history of nicotine dependence: Code(s): Z87.891 - Personal history of nicotine dependence Category: Medical Plan: Continue with yearly screening, next in January of 2025, ordered. Orders: Orders CT lung screening 01/28/25 Z87.891 - Personal history of nicotine dependence Coding Level of Care Code Est Pt Level 4 (57144) Diagnoses Mucopurulent chronic bronchitis J41.1 COPD type: chronic bronchitis Chronic bronchitis type: mucopurulent Personal history of nicotine dependence Z87.891
== END 2024-09-29 16:04 | disposition home or self-care (01) ==
PROVIDERS: PCP Internal Medicine; Visit Provider Internal Medicine Pulmonary Disease
DX: J41.1 Mucopurulent chronic bronchitis (principal); Z87.891 Personal history of nicotine dependence
CPT/HCPCS: 99214

== ENCOUNTER → 2024-09-29 15:38 | Outpatient (BNVA) | payer OTHER, SELFPAY | PROVIDERS: PCP Internal Medicine; Visit Provider Internal Medicine Pulmonary Disease | DX: J41.1 Mucopurulent chronic bronchitis (principal); F17.210 Nicotine dependence, cigarettes, uncomplicated | CPT/HCPCS: 99212 ==

== ENCOUNTER 2024-12-01 14:28 | Outpatient (AMB) | payer OTHER, SELFPAY ==
--- NOTE | 2024-12-01 14:30 | A.OFFPC_ITS ---
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 Accompanied by: Self / Same As Patient Allergies iodine Allergy (Unknown, Verified 12/01/24 14:58) Unknown shelfish Allergy (Unknown, Uncoded 12/01/24 14:58) Unknown Shellfish Allergy (Unknown, Uncoded 12/01/24 14:58) SWELLING shellfish Allergy (Unknown, Uncoded 12/01/24 14:58) anaphylactic Tobacco use date assessed: 11/29/23 Dental Screening Dental Screen Date: 11/29/23 HPI shoulder pain HPI Details The patient is a 54-year-old male with significant past medical history of right shoulder tendinitis, COPD, elevated blood pressure without hypertension smoker The patient is present to complaints of left shoulder pain reports that Saturday he was shoveling and plowing the snow-like always for work reports that he work up the following morning with left shoulder pain reports that he has been taking ibuprofen 1200mg every 6hrs Left shoulder +ROM, neg empty beer can test and neg crossing arm test mild pain with ROM. Cracking sound in the shoulder with movement The patient also had rhonchi in his lower lobes that cleared with cough He denies sob, chest pain, heart palpitation or dizziness [facility] Medical History Vitamin D deficiency Smoker COPD (chronic obstructive pulmonary disease) Surgical History History of epidermal inclusion cyst excision H/O hemorrhoidectomy History of appendectomy Family History Mother Substance abuse Father Substance abuse Social History Housing: House Alcohol intake: never Patient Tobacco Use Status: Current everyday Tobacco user Tobacco use type: Cigarette Cigarette Packs Per Day: 0.5 Cigarettes Per Day: 10 e-Cigarette/Vaping Use: Never Used Second Hand Smoke Exposure: Yes service: No Current occupational status: employed 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 1. Little interest or pleasure in doing things: not at all 2. Feeling down, depressed, or hopeless: not at all 3. Trouble falling or staying asleep, or sleeping too much: not at all 4. Feeling tired or having little energy: not at all 5. Poor appetite or overeating: not at all 6. Feeling bad about yourself - or that you are a failure or have let yourself or your family down: not at all 7. Trouble concentrating on things, such as reading the newspaper or watching television: not at all 8. Moving or speaking so slowly that other people could have noticed. Or the opposite - being so fidgety or restless that you have been moving around a lot more than usual: not at all 9. Thoughts that you would be better off or of hurting yourself in some way: not at all Total score: 0 Depression Screening Interpretation: Negative Depression Screening Done: Yes 49716 - PHQ-9 Billing: Yes Source: Developed by Drs. Jasmeet Guallpa, Rhonda Villasenor, Franco Massey and colleagues, with an educational thao from [employer]. Thrive Questionnaire Date Thrive assessed: 12/01/24 I am a: Patient What is your living situation today?: I have a steady place to live Within the past 12 months, did the food you bought not last and you didn't have the money to get more?: Never true Within the past 12 months, did you worry whether your food would run out before you got money to buy more?: Never true Do you have trouble paying for medicines?: No Do you have trouble getting transportation to medical appointments?: No Do you have trouble paying your heating and electricity bill?: No Do you have trouble taking care of your child, family member or friend?: No Do you have trouble with day-to-day activities such as bathing, preparing meals, shopping, managing finances, etc.?: No Are you currently unemployed and looking for a job?: No Are you interested in more education?: No Please select the resources that you would like help with: None Currently or been in a relationship where the following occur: No concerns reported THRIVE Score: 0 AUDIT C Alcohol Use Questionnaire (AUDIT-C) 1. How often do you have a drink containing alcohol?: Monthly or less 2. How many drinks containing alcohol do you have on a typical day when you are drinking?: 1 or 2 3. How often do you have six or more drinks on one occasion?: Never Total Score: 1 Score Reviewed/Action Taken: Yes MAXIM-7 AMB Questionnaire MAXIM-7 Date MAXIM - 7 assessed: 12/01/24 Feeling nervous, anxious, or on edge: 0 = Not at all Not being able to stop or control worryin = Not at all Worrying too much about different things: 0 = Not at all Trouble relaxin = Not at all Being so restless that it is hard to sit still: 0 = Not at all Becoming easily annoyed or irritable: 0 = Not at all Feeling afraid as if something awful might happen: 0 = Not at all Total MAXIM-7 score (0-4 normal; 5-9 mild; 10-14 moderate; 15-21 severe): 0 Source: Developed by Drs. Jasmeet Guallpa, Rhonda Villasenor, Franco Massey and colleagues, with an educational thao from [employer]. MAXIM-7 Assessment Billing MAXIM-7 Assessment Tool: MAXIM-7 Assessment 03447 Review of Systems Const Details: Denies chills, Denies fatigue, Denies fever(s), Denies headache(s) and Denies weakness HEENT Denies change in vision, Denies dizziness, Denies headache(s), Denies hearing loss, Denies nasal congestion, Denies sinus pain, Denies sinus pressure and Denies sore throat Card Denies chest pain, Denies lightheadedness, Denies dyspnea and Denies other (palpitations) Resp Denies cough, Denies dyspnea and Denies wheezing GI Denies abdominal pain, Denies melena, Denies hematochezia, Denies change in kristina wel habits, Denies dyspepsia and Denies nausea Denies hematuria and Denies dysuria Musc Denies abnormal gait, Denies myalgias, +arthralgias (left shoulder pain), Denies numbness and Denies tingling Skin/Breast Denies rash, Denies unusual bruising and Denies wounds Neuro Denies abnormal gait, Denies dizziness, Denies headache(s), Denies memory loss, Denies numbness, Denies Sensory deficit (Neuro), Denies tingling and Denies weakness Physical exam (Primary Care) Vital Signs: Last Vital Signs Pulse 72 12/01/24 14:31 BP 130/60 12/01/24 14:31 Pulse Ox 97 12/01/24 14:31 Oxygen Delivery Method Room Air 12/01/24 14:31 BMI result Body Mass Index 27.6 Tobacco/Smoking Status: Tobacco use Status Tobacco use date assessed 11/29/23 12/01/24 14:30 Patient Tobacco Use Status Current everyday Tobacco 12/01/24 14:30 Tobacco use type Cigarette 12/01/24 14:30 e-Cigarette/Vaping Use Never Used 12/01/24 14:30 PHQ-9: PHQ-9 Score PHQ-9: Total score 0 12/01/24 15:04 Depression Screening Interpretation: Negative Thrive Assessment: Date of Thrive Assessment Date Thrive assessed 12/01/24 12/01/24 14:32 Currently or been in a relationship where the following occur: No concerns reported Const Other: General: no acute distress, well developed, alert and awake Nutritional Appearance: well nourished Orientation/consciousness: patient oriented x3 HENMT Head: Yes normocephalic and Yes atraumatic Ears: hearing grossly normal bilaterally and TM's normal bilaterally General nose exam: Normal external nose present and Normal nares present Mouth: Normal oral and palatal mucosa present and moist mucous membranes Throat: Yes oropharynx normal Eyes Pupils: Equal, round and reactive pupils present and Pupil accommodation reflex normal EOM: EOMs intact bilaterally Neck Neck: Yes normal visual inspection, Yes no lymphadenopathy and Yes trachea midli ne Thyroid: Thyroid normal Carotids: no bruits Lymphatic: no lymphadenopathy noted Chest Chest palpation & inspection: normal inspection of the chest Resp Effort & Inspection: normal respiratory effort Auscultation: lower lobes rhonchi that cleared with coughing Cardio Rate: regular rate Rhythm: regular rhythm Heart sounds: S1 normal heart sound present, S2 normal heart sound present, no gallops, no murmurs and no rubs Bruits: no abdominal aortic bruits and no carotid bruits GI Palpation (GI): No Abdominal aortic bruit present, Soft to palpation, nontender, No hepatosplenomegaly present and No Rebound tenderness present Auscultation: normal bowel sounds General: Yes no CVA tenderness Back/Spine/Pelvis Back: no CVA tenderness Cervical Spine: cervical ROM normal and No Cervical spine tenderness Thoracic/Lumbar Spine: thoraco-lumbar ROM normal, No pain with thoraco-lumbar ROM, No thoracic spinal tenderness and No lumbar spinal tenderness Other: left shoulder pain, cracking sound with ROM. No red flag noted. Skin General: warm and dry. Normal skin color. Normal skin turgor Lesions: no lesions Rashes: no rashes Trauma: no lacerations or abrasions Wounds: no wounds Nails: normal Neuro General: patient oriented x3, gait normal Cranial nerves: Yes Equal, round and reactive pupils present Cognition (Neuro): normal cognition Gait exam (Neuro): Normal gait present Extrem General: Yes normal to inspection, No edema and No calf tenderness Psych Appearance: grossly normal Affect: normal affect Attitude: cooperative Thought process: Normal thought process present Coding Level of Care Code Est Pt Level 3 (62430) Diagnoses Acute pain of left shoulder M25.512 Chronicity: acute Mucopurulent chronic bronchitis J41.1 COPD type: chronic bronchitis Chronic bronchitis type: mucopurulent Smoker F17.200 Additional Codes MAXIM-7 Assessment Billing - MAXIM-7 Assessment Tool: MAXIM-7 Assessment 73988 ([id number]) PHQ-9 - 77821 - PHQ-9 Billing: Yes ([id number]) Time Spent (min) 29 Assessment & Plan Assessment & Plan (1) Left shoulder pain: Code(s): M25.512 - Pain in left shoulder Category: Medical Qualifiers: Chronicity: acute Qualified Code(s): M25.512 - Pain in left shoulder Plan: The patient reports pain that started the morning after shoveling show. Most likely overused condition. No red flag noted on assessment. Meloxicam 15 mg ordered and cyclobenzaprine 10 mg at bedtime prn ordered and lidocaine patch ordered The patient to contact office if the pain persist (2) COPD (chronic obstructive pulmonary disease): Code(s): J44.9 - Chronic obstructive pulmonary disease, unspecified Category: Medical Qualifiers: COPD type: chronic bronchitis Chronic bronchitis type: mucopurulent Qualified Code(s): J41.1 - Mucopurulent chronic bronchitis Plan: The patient had rhonchi is lower lobes that cleared with coughing. He denies sob, continue scheduled and prn inhalers (3) Smoker: Code(s): F17.200 - Nicotine dependence, unspecified, uncomplicated Category: Social Hx Plan: smoking cessation. Reports that he tried and failed before Medications: New cyclobenzaprine 10 mg PO BEDTIME PRN 30 tabs 2RF muscle spasm meloxicam 15 mg PO DAILY 30 tabs 2RF lidocaine 5% leave on most painful area for up to 12 hrs 1 patch topical DAILY 30 ea 0RF
[2024-12-01 14:31] VITALS: BP 130/60; PULSE 72; O2SAT 97; BMI 27.6
--- OUTSIDE RECORDS SUMMARY | 2024-12-01 15:29 | XMS_ITS | Clinical Summary ---
Author Organization [facility] it Address [address] [place] [address] Care Team Providers Care Processing Inspector Name Role Phone Robert Sr MD Primary Care Provider Social History Tobacco Use Types Packs/Day Years Used Date Smoking Tobacco: Never Assessed Sex and Gender Information Value Date Recorded Sex Assigned at Not on file Legal Sex Male 11:00 AM EST Gender Identity Not on file Sexual Orientation Not on file Plan of Treatment Health Maintenance Due Date Last Done Comments Hepatitis B Vaccines (1 of 3 - 19+ 3-dose series) 1987 Pneumococcal Vaccine: 50+ Ye ars (1 of 1 - PCV) 2018 Zoster Vaccines (1 of 2) 2018 Cholesterol Screening (Lipid Panel) 09/11/2022 Colorectal Cancer Screening: Colonoscopy 09/11/2022 Depression Screening 09/11/2022 HIV Screening 09/11/2022 Hepatitis C Screening 09/11/2022 Social Influencers of Health Screening 09/11/2022 COVID-19 Vaccine (1 - 2023-2 5 season) 2024 Influenza Vaccine (#1) 2024 07/24/2016 DTaP,Tdap,and Td Vaccines (2 - Td or Tdap) 07/24/2026 07/24/2016 HIB Vaccines Aged Out No longer eligi ble based on patient's age to complete this topic HPV Vaccines Aged Out No longer eligi ble based on patient's age to complete this topic Hepatitis A Vaccines Aged Out No long er eligible based on patient's age to complete this topic IPV Vaccines Aged Out No longer eligi ble based on patient's age to complete this topic MMR Vaccines Aged Out No longer eligi ble based on patient's age to complete this topic Meningococcal ACWY Vaccine Aged Out N o longer eligible based on patient's age to complete this topic Meningococcal B Vacine Aged Out No lo nger eligible based on patient's age to complete this topic Pneumococcal Vaccine: Pediat rics (0 to 5 Years) and At-Risk Patients (6 to 64 Years) Aged Out No longer eligi ble based on patient's age to complete this topic RSV Immunization Patients Un kristine 20 months Aged Out No longer eligible b ased on patient's age to complete this topic Varicella Vaccines Aged Out No longer eligible based on patient's age to complete this topic Care Teams Processing Inspector Relationship Specialty Start Date End Date Robert Sr MD [address] [place] [address] [address] [place] PCP - General Internal Medicine 08/27/18
== END 2024-12-01 15:14 | disposition home or self-care (01) ==
PROVIDERS: PCP Internal Medicine
DX: M25.512 Pain in left shoulder (principal); J41.1 Mucopurulent chronic bronchitis; F17.200 Nicotine dependence, unspecified, uncomplicated

== ENCOUNTER → 2024-12-01 14:28 | Outpatient (BNVA) | payer OTHER, SELFPAY | PROVIDERS: PCP Internal Medicine | DX: M25.512 Pain in left shoulder (principal); J41.1 Mucopurulent chronic bronchitis; F17.200 Nicotine dependence, unspecified, uncomplicated; Z71.6 Tobacco abuse counseling | CPT/HCPCS: 96127; 99212 ==

== ENCOUNTER 2024-12-09 16:18 | Outpatient (AMB) | payer OTHER, SELFPAY ==
[2024-12-09 16:50] VITALS: BP 134/78; PULSE 71; O2SAT 94; BMI 27.6
--- NOTE | 2024-12-09 16:50 | A.OFFPC_ITS ---
Vital Signs 12/09/24 16:50 Height 5 ft 9 in Weight 187 lb 4 oz BMI 27.6 BP 134/78 Blood Pressure Location Lt brachial Position Sitting Pulse 71 Pulse Source Pulse Oximeter Pulse Oximetry (%) 94 Oxygen Delivery Method Room Air Intake Visit Reasons: PHYSICAL Carrier Associate Required: No Accompanied by: Self / Same As Patient Allergies iodine Allergy (Unknown, Verified 12/09/24 17:22) Unknown shelfish Allergy (Unknown, Uncoded 12/09/24 17:22) Unknown Shellfish Allergy (Unknown, Uncoded 12/09/24 17:22) SWELLING shellfish Allergy (Unknown, Uncoded 12/09/24 17:22) anaphylactic Medication List - Last Reconciled 12/09/24 by Robert Sr MD Anoro Ellipta 62.5-25 mcg/actuation (umeclidinium-vilanterol) 1 ea inhalation DAILY NS cetirizine 10 mg PO BID 30 days cyclobenzaprine 10 mg PO BEDTIME PRN fluticasone propionate 50 mcg/actuation (Flonase Allergy Relief) 1 spray intranasal BID ibuprofen 600 mg PO Q6H PRN ipratropium bromide intranasal ipratropium-albuterol 0.5 mg-3 mg(2.5 mg base)/3 mL 3 mL inhalation Q4-6H PRN 30 days lidocaine 5% 1 patch topical DAILY nicotine 1 patch transdermal DAILY 7 days nicotine 1 patch transdermal Q24H 28 days nicotine (Nicoderm CQ) 1 patch transdermal DAILY 1 day Tobacco use date assessed: 12/09/24 Dental Screening Dental Screen Date: 12/09/24 Did you have a dental visit in the last 12 months?: No Did you have a dental problem in the last 6 months where you did not have access to dental care?: No Was dental information given to patient?: Patient has dentist HPI PHYSICAL HPI Details Patient comes in today for his annual physical examination States that he is still experiencing pain in his left shoulder, which has been bothering him for over a week now Thinks that he may have strained his shoulder while plowing and shoveling snow early last week as he woke up the next day with a very sore left shoulder States that the pain now is somewhat less compared to last week but he still exp eriences increased pain in his shoulder with increased activity and towards the end of the day, as he still goes to work everyday and he uses his arms at work all day long He was prescribed some Meloxicam last week but states that his head feels foggy after he takes Meloxicam so he ended up going back on Ibuprofen during the day and Cyclobenzaprine at bedtime, which helps him sleep a little better States that he always makes sure he takes his Ibuprofen with food He denies any headaches or dizziness Denies any chest pains, no increased SOB No nausea/vomiting, no abdominal pain No change in bowel habits noted He denies any acute urinary symptoms He has never had a screening colonoscopy done yet - states that he never called to schedule an appointment with GI despite being referred for a screening colonoscopy a couple of times over the past 2 to 3 years [facility] Medical History Vitamin D deficiency Smoker COPD (chronic obstructive pulmonary disease) Surgical History History of epidermal inclusion cyst excision H/O hemorrhoidectomy History of appendectomy Family History Mother Substance abuse Father Substance abuse Social History Housing: House Alcohol intake: never Patient Tobacco Use Status: Current everyday Tobacco user Tobacco use type: Cigarette Cigarette Packs Per Day: 1 Cigarettes Per Day: 10 e-Cigarette/Vaping Use: Never Used Second Hand Smoke Exposure: Yes service: No Current occupational status: employed 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 1. Little interest or pleasure in doing things: not at all 2. Feeling down, depressed, or hopeless: not at all 3. Trouble falling or staying asleep, or sleeping too much: not at all 4. Feeling tired or having little energy: not at all 5. Poor appetite or overeating: not at all 6. Feeling bad about yourself - or that you are a failure or have let yourself or your family down: not at all 7. Trouble concentrating on things, such as reading the newspaper or watching television: not at all 8. Moving or speaking so slowly that other people could have noticed. Or the opposite - being so fidgety or restless that you have been moving around a lot more than usual: not at all 9. Thoughts that you would be better off or of hurting yourself in some way: not at all Total score: 0 Depression Screening Interpretation: Negative Depression Screening Done: Yes 24996 - PHQ-9 Billing: Yes Source: Developed by Drs. Jasmeet Guallpa, Rhonda Villasenor, Franco Massey and colleagues, with an educational thao from [employer]. Thrive Questionnaire Date Thrive assessed: 12/09/24 I am a: Patient What is your living situation today?: I have a steady place to live Within the past 12 months, did the food you bought not last and you didn't have the money to get more?: Never true Within the past 12 months, did you worry whether your food would run out before you got money to buy more?: Never true Do you have trouble paying for medicines?: No Do you have trouble getting transportation to medical appointments?: No Do you have trouble paying your heating and electricity bill?: No Do you have trouble taking care of your child, family member or friend?: No Do you have trouble with day-to-day activities such as bathing, preparing meals, shopping, managing finances, etc.?: No Are you currently unemployed and looking for a job?: No Are you interested in more education?: No Please select the resources that you would like help with: None Currently or been in a relationship where the following occur: No concerns r eported THRIVE Score: 0 AUDIT C Alcohol Use Questionnaire (AUDIT-C) 1. How often do you have a drink containing alcohol?: Monthly or less 2. How many drinks containing alcohol do you have on a typical day when you are drinking?: 3 or 4 3. How often do you have six or more drinks on one occasion?: Never Total Score: 2 Score Reviewed/Action Taken: Yes MAXIM-7 AMB Questionnaire MAXIM-7 Date MAXIM - 7 assessed: 12/09/24 Feeling nervous, anxious, or on edge: 0 = Not at all Not being able to stop or control worryin = Not at all Worrying too much about different things: 0 = Not at all Trouble relaxin = Not at all Being so restless that it is hard to sit still: 0 = Not at all Becoming easily annoyed or irritable: 0 = Not at all Feeling afraid as if something awful might happen: 0 = Not at all Total MAXIM-7 score (0-4 normal; 5-9 mild; 10-14 moderate; 15-21 severe): 0 Source: Developed by Drs. Jasmeet Guallpa, Rhonda Villasenor, Franco Massey and colleagues, with an educational thao from [employer]. Review of Systems Const Denies chills, Denies fatigue, Denies fever(s), Denies headache(s), Denies malaise and Denies weakness Eyes Denies blurry vision, Denies change in vision, Denies irritation and Denies itchy eyes ENT Denies dysphagia, Denies dizziness, Denies otalgia, Denies headache(s), Denies nasal congestion, Denies neck pain, Denies odynophagia and Denies sore throat Card Denies chest pain, Denies rapid heart rate, Denies irregular heart rhythm, Denies palpitations and Denies dyspnea Resp Denies chest congestion, Denies cough, Denies dyspnea and Denies wheezing GI Denies abdominal pain, Denies bloating, Denies constipation, Denies dysphagia, Denies heartburn, Denies diarrhea, Denies nausea, Denies odynophagia and Denies vomiting Denies hematuria, Denies difficulty urinating, Denies dysuria, Denies urinary frequency and Denies urinary urgency Musc Denies back pain, Reports arthralgias (in the left shoulder - see HPI), Denies joint swelling, Denies muscle weakness and Denies neck pain Skin/Breast Denies change in pigmentation, Denies lesions, Denies rash and Denies unusual bruising Neuro Denies dizziness, Denies headache(s), Denies paresthesias and Denies weakness Endo Denies fatigue and Denies palpitations Aller/Immun Denies itchy eyes and Denies wheezing Physical exam (Primary Care) Vital Signs: Last Vital Signs Pulse 71 12/09/24 16:50 BP 134/78 12/09/24 16:50 Pulse Ox 94 12/09/24 16:50 Oxygen Delivery Method Room Air 12/09/24 16:50 BMI result Body Mass Index 27.6 Tobacco/Smoking Status: Tobacco use Status Tobacco use date assessed 12/09/24 12/09/24 17:01 Patient Tobacco Use Status Current everyday Tobacco 12/09/24 17:01 Tobacco use type Cigarette 12/09/24 17:01 e-Cigarette/Vaping Use Never Used 12/09/24 17:01 PHQ-9: PHQ-9 Score PHQ-9: Total score 0 12/09/24 18:54 Depression Screening Interpretation: Negative Thrive Assessment: Date of Thrive Assessment Date Thrive assessed 12/09/24 12/09/24 17:01 Currently or been in a relationship where the following occur: No concerns reported Const General: no acute distress, alert and awake Orientation/consciousness: patient oriented x3 HENMT Head: Yes normocephalic and Yes atraumatic Ears: external ears normal, TM's normal bilaterally and EAC's normal General nose exam: No nasal discharge present Face and sinus: Yes normal facial exam and Yes sinuses nontender Teeth and gingiva: dentition normal Throat: Yes posterior oropharynx normal and Yes tonsils normal (no TP conges tion) Eyes Eyelids: Yes eyelids normal Conjunctivae: conjunctivae normal Pupils: Equal, round and reactive pupils present EOM: EOMs intact bilaterally Neck Neck: Yes supple and No lymphadenopathy Thyroid: Thyroid normal Resp Auscultation: clear to auscultation bilaterally, no rales, rhonchi (occasional rhonchi) upper bilaterally and no wheezes Cardio Rate: regular rate Rhythm: regular rhythm Heart sounds: no murmurs GI Palpation (GI): Soft to palpation, nontender and No hepatosplenomegaly present Auscultation: normal bowel sounds General: Yes no CVA tenderness Back/Spine/Pelvis Back: no CVA tenderness Thoracic/Lumbar Spine: thoracic and lumbar spine normal to inspection Skin Lesions: no lesions Rashes: no rashes Neuro General: patient oriented x3, moves all extremities, no focal motor deficits and CN's II-XI intact bilaterally Cranial nerves: Yes Equal, round and reactive pupils present Cognition (Neuro): normal cognition Gait exam (Neuro): Normal gait present Extrem General: Yes no clubbing, cyanosis or edema Left upper extremity: shoulder/upper arm Details: tenderness Location: over the deltoid bursa (and the proximal deltoid muscle) Coding Level of Care Code Est Pt Prev Care 40-64y(43665) Diagnoses Annual physical exam Z00.00 Mucopurulent chronic bronchitis J41.1 COPD type: chronic bronchitis Chronic bronchitis type: mucopurulent Elevated BP without diagnosis of hypertension R03.0 Vitamin D deficiency E55.9 Acute pain of left shoulder M25.512 Chronicity: acute Smoker F17.200 Colon cancer screening Z12.11 Additional Codes PHQ-9 - 61786 - PHQ-9 Billing: Yes ([id number]) Assessment & Plan Assessment & Plan (1) Annual physical exam: Code(s): Z00.00 - Encounter for general adult medical examination without abnormal findings Category: Medical Plan: Check labs Patient has never had a screening colonoscopy done and he is past due for one (2) COPD (chronic obstructive pulmonary disease): Code(s): J44.9 - Chronic obstructive pulmonary disease, unspecified Category: Medical Qualifiers: COPD type: chronic bronchitis Chronic bronchitis type: mucopurulent Qualified Code(s): J41.1 - Mucopurulent chronic bronchitis Plan: Chest x-rays done in April 2021 revealed (+) bilateral hyperinflation with no acute changes consistent with COPD CT lung screening done last year in January 2024 revealed (+) mild emphysematous changes are present and mild saber sheath trachea seen. [id number] bronchial wall thickening is present. Some minimal basilar atelectasis is seen. At least 4 punctate calcified granulomas seen in the right lung. The lungs are otherwise clear with no evidence of inflammation or worrisome nodules Patient states that he does not feel SOB and has not needed to use any inhalers unless he comes down with a respiratory infection or starts experiencing respiratory symptoms Patient has smoked for years and is continuing to work on quitting smoking completely but has been unsuccessful so far Follow up with pulmonary as scheduled (3) Elevated BP without diagnosis of hypertension: Code(s): R03.0 - Elevated blood-pressure reading, without diagnosis of hypertension Category: Medical Plan: His systolic BP is still slightly elevated today at 134 mm Reinforced low sodium diet Patient is reminded to continue monitoring his blood pressure regularly (4) Vitamin D deficiency: Code(s): E55.9 - Vitamin D deficiency, unspecified Category: Medical Plan: Continue Vitamin D3 2000 units QD (5) Left shoulder pain: Code(s): M25.512 - Pain in left shoulder Category: Medical Qualifiers: Chronicity: acute Qualified Code(s): M25.512 - Pain in left shoulder Plan: Discussed with patient that he most likely has bursitis or tendinitis of the shoulder and it appears to involve the proximal deltoid muscle and possibly the subdeltoid bursa He is currently taking Ibuprofen 600 mg every 6 hours with food PRN and Cyclobenzaprine 10 mg Q HS PRN, which he feels is helping Have advised patient to call back if he still does not experience any significant improvement of his left shoulder pain in a couple of weeks and we may need to send him for imaging studies and/or physical therapy evaluation then (6) Smoker: Code(s): F17.200 - Nicotine dependence, unspecified, uncomplicated Category: Social Hx Plan: Patient is counseled again to continue attempts at complete smoking cessation He has tried to quit smoking unsuccessfully in the past and is now again trying to work on quitting smoking (7) Colon cancer screening: Code(s): Z12.11 - Encounter for screening for malignant neoplasm of colon Category: Medical Plan: Will refer him again to GI for his screening colonoscopy Plan Follow up in 6 months Orders: Orders UA CC w/rflx Micro + Cult Today R30.0 - Dysuria, Z00.00 - Encounter for general adult medical examination without abnormal findings Vitamin D 25-OH Total Today E55.9 - Vitamin D deficiency, unspecified, Z00.00 - Encounter for general adult medical examination without abnormal findings Complete Blood Count Auto Diff Today D64.9 - Anemia, unspecified, Z00.00 - Encounter for general adult medical examination without abnormal findings Comprehensive [place]. Panel Fast Today E78.00 - Pure hypercholesterolemia, unspecified, Z00.00 - Encounter for general adult medical examination without abnormal findings Lipid Panel Today E78.00 - Pure hypercholesterolemia, unspecified, Z00.00 - Encounter for general adult medical examination without abnormal findings TSH reflex Free T4 Today E78.00 - Pure hypercholesterolemia, unspecified, Z00.00 - Encounter for general adult medical examination without abnormal findings Prostate Specific Antigen Today N40.0 - Benign prostatic hyperplasia without lower urinary tract symptoms, Z00.00 - Encounter for general adult medical examination without abnormal findings Referrals Gastroenterology Referral Z12.11 - Encounter for screening for malignant neoplasm of colon
--- OUTSIDE RECORDS SUMMARY | 2024-12-09 19:40 | XMS_ITS | Clinical Summary ---
Author Organization [facility] it Address [address] [place] [address] Care Team Providers Care Technical Training Instructor Name Role Phone Robert Sr MD Primary [...] age to complete this topic Care Teams Technical Training Instructor Relationship Specialty Start Date End Date Robert Sr MD [address] [place] [address] [address] [place] PCP - General Internal Medicine 08/27/18
== END 2024-12-09 17:40 | disposition home or self-care (01) ==
PROVIDERS: PCP Internal Medicine; Visit Provider Internal Medicine
DX: Z00.00 Encounter for general adult medical examination without abnormal findings (principal); J41.1 Mucopurulent chronic bronchitis; R03.0 Elevated blood-pressure reading, without diagnosis of hypertension; E55.9 Vitamin D deficiency, unspecified; M25.512 Pain in left shoulder; F17.200 Nicotine dependence, unspecified, uncomplicated; Z12.11 Encounter for screening for malignant neoplasm of colon

== ENCOUNTER → 2024-12-09 16:18 | Outpatient (BNVA) | payer OTHER, SELFPAY | PROVIDERS: PCP Internal Medicine; Visit Provider Internal Medicine | DX: Z00.00 Encounter for general adult medical examination without abnormal findings (principal); J41.1 Mucopurulent chronic bronchitis; R03.0 Elevated blood-pressure reading, without diagnosis of hypertension; E55.9 Vitamin D deficiency, unspecified; M25.512 Pain in left shoulder; F17.200 Nicotine dependence, unspecified, uncomplicated | CPT/HCPCS: 96127; 99396 ==

== ENCOUNTER 2025-01-18 16:02 | Outpatient (REF) | payer OTHER, SELFPAY ==
--- NOTE | ~2025-01-18 | CT_ITS ---
CLINICAL HISTORY: Z87.891 - Personal history of nicotine dependence CT lung cancer screening (LDCT) Comparison: CT/[place]/SR - CT LUNG SCREENING - 01/13/24 16:28 EDT Technique: Axial CT images of the chest using low-dose technique. Referring provider counseled the patient on shared decision-making for LDCT screening. Additional counseling was provided on smoking cessation. Effective radiation dose total: DLP 54.1 mGycm, CTDIvol 1.4 mGy. Findings: Lung: Mild centrilobular emphysema. Calcified granulomas. Coronary artery calcifications: None Limited upper abdomen: Unremarkable Other: None Impression: LungRADS 1: Negative exam. Continue annual screening with low dose Chest CT in 12 months. ##L1# Category 1: Normal; continue annual screening Category 2: Benign appearance or behavior, continue annual screening Category 3: Probably benign, [address] recommended Category 4A: Suspicious, [address] recommended; may consider PET/CT Category 4B: Suspicious, Additional diagnostics and/or tissue sampling recommended Category 4X: Suspicious, Additional diagnostics and/or tissue sampling recommended Category 0: Recalls (incomplete screen due to Incomplete coverage, Noise, Respiratory motion, Expiration, Obscured by acute abnormality) This document has been electronically signed by: Vicki Marrero MD on 01/19/2025 13:25:54
--- OUTSIDE RECORDS SUMMARY | 2025-01-18 18:36 | XMS_ITS | Clinical Summary ---
Author Organization [facility] it Address [address] [place] [address] Care Team Providers Care Supervisor Tellers Name Role Phone Robert Sr MD Primary [...] age to complete this topic Meningococcal B Vaccine Aged Out No l onger eligible based on patient's age to complete [...] age to complete this topic Care Teams Supervisor Tellers Relationship Specialty Start Date End Date Robert Sr MD [address] [place] [address] [address] [place] PCP - General Internal Medicine 08/27/18
== END 2025-01-18 16:03 | disposition home or self-care (01) ==
LOC: HO.CT 16:02
PROVIDERS: PCP Internal Medicine; Visit Provider Internal Medicine Pulmonary Disease
DX: Z12.2 Encounter for screening for malignant neoplasm of respiratory organs (principal); Z87.891 Personal history of nicotine dependence
CPT/HCPCS: 71271

== ENCOUNTER → 2025-01-18 16:06 | Outpatient (BNV) | payer OTHER, SELFPAY | PROVIDERS: PCP Internal Medicine; Visit Provider Nuclear Medicine | DX: Z87.891 Personal history of nicotine dependence (principal) | CPT/HCPCS: 71271 ==

== ENCOUNTER 2025-03-24 14:31 | Outpatient (AMB) | payer OTHER, SELFPAY ==
[2025-03-24 14:33] VITALS: BP 132/67; PULSE 78; O2SAT 94; BMI 27.5
--- NOTE | 2025-03-24 14:33 | A.OFFVIS_ITS ---
Vital Signs 03/24/25 14:33 Height 5 ft 9 in Weight 186 lb BMI 27.5 BP 132/67 Blood Pressure Location Rt brachial Position Sitting Pulse 78 Pulse Source Pulse Oximeter Pulse Oximetry (%) 94 Oxygen Delivery Method Room Air Intake Visit Reasons: COPD Allergies iodine Allergy (Unknown, Verified 03/24/25 14:37) Unknown shelfish Allergy (Unknown, Uncoded 12/09/24 17:22) Unknown Shellfish Allergy (Unknown, Uncoded 12/09/24 17:22) SWELLING shellfish Allergy (Unknown, Uncoded 12/09/24 17:22) anaphylactic HPI HPI COPD: Details: 55-year-old gentleman, active 40+ pack-year smoker previous followed for moderate COPD. He continues on Anoro and albuterol MDI with good control of his symptoms. He denies recent exacerbations. 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 Cognitive needs: No Hearing needs: No Vision needs: Yes Review of Systems Const Denies daytime sleepiness, Denies excessive sweating, Denies fatigue, Denies fever(s), Denies lethargy, Denies malaise, Denies night sweats, Denies snoring and Denies weight loss Eyes Denies blurry vision and Denies itchy eyes ENT Denies nasal congestion, Denies post nasal drip, Denies sinus pain, Denies sinus pressure and Denies other ( Thrush) Card Denies chest pain, Denies pedal edema, Denies dyspnea, Denies orthopnea and Denies paroxysmal nocturnal dyspnea Resp Denies cough, Denies hemoptysis, Denies excessive phlegm production, Denies dyspnea, Denies snoring and Denies wheezing GI Denies abdominal pain and Denies heartburn Musc Denies myalgias, Denies arthralgias and Denies joint swelling Skin/Breast Denies rash Neuro Denies memory loss and Denies seizure-like activity Psych Denies abnormal sleep pattern, Denies anxiety and Denies memory loss Endo Denies excessive sweating, Denies fatigue and Denies heat intolerance Andrea/Lymph Denies easy bruising Aller/Immun Denies itchy eyes, Denies seasonal rhinorrhea and Denies wheezing Physical Exam Vital Signs: Last Vital Signs Pulse 78 03/24/25 14:33 BP 132/67 03/24/25 14:33 Pulse Ox 94 03/24/25 14:33 Oxygen Delivery Method Room Air 03/24/25 14:33 BMI result Body Mass Index 27.5 Const General: no acute distress and alert Nutritional Appearance: not obese Orientation/consciousness: Other orientation findings ( oriented) HEENT Head: Yes atraumatic Eyes General: appearance normal, both eyes and all related structures Sclerae: sclerae normal EOM: EOMs intact bilaterally Neck Neck: Yes supple Lymphatic: no lymphadenopathy noted Resp Effort & Inspection: normal respiratory effort and no use of accessory muscles Auscultation: clear to auscultation bilaterally Cardio Rate: regular rate Rhythm: regular rhythm Heart sounds: no gallops, no murmurs and no rubs Skin General skin exam: other ( warm) Extrem General: No clubbing, No cyanosis and No edema Assessment & Plan Assessment & Plan (1) COPD (chronic obstructive pulmonary disease): Code(s): J44.9 - Chronic obstructive pulmonary disease, unspecified Category: Medical Qualifiers: COPD type: chronic bronchitis Chronic bronchitis type: mucopurulent Qualified Code(s): J41.1 - Mucopurulent chronic bronchitis Plan: Well controlled on current regimen of Anoro, duo nebs, and albuterol MDI. Continue current regimen. (2) Personal history of nicotine dependence: Code(s): Z87.891 - Personal history of nicotine dependence Category: Medical Plan: Results of lung cancer screening CT chest reviewed, no worrisome nodules, continue with yearly screening, next in January of 2026, ordered. Orders: Orders CT lung screening 01/22/26 Z87.891 - Personal history of nicotine dependence Coding Level of Care Code Est Pt Level 4 (23047) Diagnoses Mucopurulent chronic bronchitis J41.1 COPD type: chronic bronchitis Chronic bronchitis type: mucopurulent Personal history of nicotine dependence Z87.891
== END 2025-03-24 14:47 | disposition home or self-care (01) ==
LOC: HO.HPS 14:32
PROVIDERS: PCP Internal Medicine; Visit Provider Internal Medicine Pulmonary Disease
DX: J41.1 Mucopurulent chronic bronchitis (principal); Z87.891 Personal history of nicotine dependence
CPT/HCPCS: 99214

== ENCOUNTER → 2025-03-24 14:31 | Outpatient (BNVA) | payer OTHER, SELFPAY | PROVIDERS: PCP Internal Medicine; Visit Provider Internal Medicine Pulmonary Disease | DX: J41.1 Mucopurulent chronic bronchitis (principal); Z87.891 Personal history of nicotine dependence | CPT/HCPCS: 99212 ==

== ENCOUNTER 2025-06-08 16:28 | Outpatient (AMB) | payer OTHER, SELFPAY ==
--- NOTE | 2025-06-08 16:35 | A.OFFPC_ITS ---
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 Accompanied by: Self / Same As Patient Allergies iodine Allergy (Unknown, Verified 06/08/25 16:50) Unknown shelfish Allergy (Unknown, Uncoded 06/08/25 16:50) Unknown Shellfish Allergy (Unknown, Uncoded 06/08/25 16:50) SWELLING shellfish Allergy (Unknown, Uncoded 06/08/25 16:50) anaphylactic Medication List - Last Reconciled 06/08/25 by Robert Sr MD Anoro Ellipta 62.5-25 mcg/actuation (umeclidinium-vilanterol) 1 ea inhalation DAILY NS fluticasone propionate 50 mcg/actuation (Flonase Allergy Relief) 1 spray intranasal BID Tobacco use date assessed: 06/08/25 Dental Screening Dental Screen Date: 06/08/25 Did you have a dental visit in the last 12 months?: No Did you have a dental problem in the last 6 months where you did not have access to dental care?: No Was dental information given to patient?: No HPI 6 month f/u HPI Details Patient comes in today for his follow up visit States that he feels okay but his left shoulder is still bothering him a lot Notes that he is recently just able to raise it up whereas he could not do that as much before He denies any headaches or dizziness Denies any chest pains, no increased SOB No nausea/vomiting, no abdominal pain No change in bowel habits noted He did not get his labs done when they were ordered at his last visit He also was not able to keep his GI precolonoscopy appointment - states that he had to cancel his appointment with them last month when he got busy at work - is wondering if a Cologuard test would be an option for him at this time as he is still having a hard time taking off from work at this time [facility] Medical History Vitamin D deficiency Smoker COPD (chronic obstructive pulmonary disease) Surgical History History of epidermal inclusion cyst excision H/O hemorrhoidectomy History of appendectomy Family History Mother Substance abuse Father Substance abuse Social History Housing: House Alcohol intake: never Patient Tobacco Use Status: Current everyday Tobacco user Tobacco use type: Cigarette Cigarette Packs Per Day: 1 Cigarettes Per Day: 10 e-Cigarette/Vaping Use: Never Used Second Hand Smoke Exposure: Yes service: No Current occupational status: employed 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 Depression Screening Interpretation: Negative Depression Screening Done: Yes Source: Developed by Drs. Jasmeet Guallpa, Rhonda Villasenor, Franco Massey and colleagues, with an educational thao from [employer]. Thrive Questionnaire Date Thrive assessed: 12/09/24 I am a: Patient What is your living situation today?: I have a steady place to live Within the past 12 months, did the food you bought not last and you didn't have the money to get more?: Never true Within the past 12 months, did you worry whether your food would run out before you got money to buy more?: Never true Do you have trouble paying for medicines?: No Do you have trouble getting transportation to medical appointments?: No Do you have trouble paying your heating and electricity bill?: No Do you have trouble taking care of your child, family member or friend?: No Do you have trouble with day-to-day activities such as bathing, preparing meals, shopping, managing finances, etc.?: No Are you currently unemployed and looking for a job?: No Are you interested in more education?: No Please select the resources that you would like help with: None Currently or been in a relationship where the following occur: No concerns reported THRIVE Score: 0 MAXIM-7 AMB Questionnaire MAXIM-7 Date MAXIM - 7 assessed: 12/09/24 Source: Developed by Drs. Jasmeet Guallpa, Rhonda Villasenor, Franco Massey and colleagues, with an educational thao from [employer]. Review of Systems Const Denies chills, Denies fatigue and Denies fever(s) ENT Denies dysphagia, Denies otalgia, Denies neck pain, Denies odynophagia and Denies sore throat Card Denies chest pain, Denies rapid heart rate, Denies irregular heart rhythm, Denies palpitations and Denies dyspnea Resp Denies chest congestion, Denies cough and Denies dyspnea GI Denies abdominal pain, Denies constipation, Denies dysphagia, Denies heartburn, Denies diarrhea, Denies nausea, Denies odynophagia and Denies vomiting Denies difficulty urinating, Denies dysuria and Denies urinary frequency Musc Denies back pain, Reports arthralgias (in the left shoulder - see HPI) and Denies neck pain Skin/Breast Denies rash Endo Denies fatigue and Denies palpitations Physical exam (Primary Care) Vital Signs: Last Vital Signs Pulse 83 06/08/25 16:36 BP 118/60 06/08/25 16:36 Pulse Ox 95 06/08/25 16:36 BMI result Body Mass Index 26.5 Tobacco/Smoking Status: Tobacco use Status Tobacco use date assessed 06/08/25 06/08/25 16:41 Patient Tobacco Use Status Current everyday Tobacco 06/08/25 16:41 Tobacco use type Cigarette 06/08/25 16:41 e-Cigarette/Vaping Use Never Used 06/08/25 16:41 Depression Screening Interpretation: Negative Thrive Assessment: Date of Thrive Assessment Date Thrive assessed 12/09/24 06/08/25 16:41 Currently or been in a relationship where the following occur: No concerns reported Const General: no acute distress and alert HENMT Ears: TM's normal bilaterally and EAC's normal Throat: Yes posterior oropharynx normal and Yes tonsils normal (no TP congestion) Neck Neck: Yes supple and No lymphadenopathy Thyroid: Thyroid normal Resp Auscultation: clear to auscultation bilaterally, no rales and no wheezes Cardio Rate: regular rate Rhythm: regular rhythm Heart sounds: no murmurs GI Palpation (GI): Soft to palpation and nontender Auscultation: normal bowel sounds General: Yes no CVA tenderness Back/Spine/Pelvis Back: no CVA tenderness Thoracic/Lumbar Spine: No lumbar spinal tenderness Skin Rashes: no rashes Extrem General: Yes no clubbing, cyanosis or edema Left upper extremity: shoulder/upper arm Details: tenderness Location: over the deltoid bursa (and the proximal deltoid muscle) Coding Level of Care Code Est Pt Level 4 (29781) Diagnoses Mucopurulent chronic bronchitis J41.1 COPD type: chronic bronchitis Chronic bronchitis type: mucopurulent Elevated BP without diagnosis of hypertension R03.0 Vitamin D deficiency E55.9 Acute pain of left shoulder M25.512 Chronicity: acute Smoker F17.200 Colon cancer screening Z12.11 Assessment & Plan Assessment & Plan (1) COPD (chronic obstructive pulmonary disease): Code(s): J44.9 - Chronic obstructive pulmonary disease, unspecified Category: Medical Qualifiers: COPD type: chronic bronchitis Chronic bronchitis type: mucopurulent Qualified Code(s): J41.1 - Mucopurulent chronic bronchitis Plan: Chest x-rays done in April 2021 revealed (+) bilateral hyperinflation with no a cute changes consistent with COPD CT lung screening done last year in January 2024 revealed (+) mild emphysematous changes are present and mild saber sheath trachea seen. [id number] bronchial wall thickening is present. Some minimal basilar atelectasis is seen. At least 4 punctate calcified granulomas seen in the right lung. The lungs are otherwise clear with no evidence of inflammation or worrisome nodules Patient states that he does not feel SOB and has not needed to use any inhalers unless he comes down with a respiratory infection or starts experiencing respiratory symptoms Repeat CT lung screening this past January 2025 also came back negative Patient has smoked for years and is continuing to work on quitting smoking completely but has been unsuccessful so far Follow up with pulmonary as scheduled (2) Elevated BP without diagnosis of hypertension: Code(s): R03.0 - Elevated blood-pressure reading, without diagnosis of hypertension Category: Medical Plan: His blood pressure today appears well-controlled Reinforced low sodium diet Patient is reminded to continue monitoring his blood pressure regularly Will also have patient go and get his previously ordered labs (updated) done [facility] (3) Vitamin D deficiency: Code(s): E55.9 - Vitamin D deficiency, unspecified Category: Medical Plan: Continue Vitamin D3 2000 units QD (4) Left shoulder pain: Code(s): M25.512 - Pain in left shoulder Category: Medical Qualifiers: Chronicity: acute Qualified Code(s): M25.512 - Pain in left shoulder Plan: Discussed with patient again that he most likely has bursitis or tendinitis of the shoulder and it appears to involve the proximal deltoid muscle and possibly the subdeltoid bursa He is currently still taking Ibuprofen 600 mg every 6 hours with food PRN and Cyclobenzaprine 10 mg Q HS PRN, which he feels is helping As his shoulder has been bothering him for over a year now, will send him for x- rays of the left shoulder for further evaluation (5) Smoker: Code(s): F17.200 - Nicotine dependence, unspecified, uncomplicated Category: Social Hx Plan: Patient is counseled again to continue attempts at complete smoking cessation He has tried to quit smoking unsuccessfully in the past and is now again trying to work on quitting smoking (6) Colon cancer screening: Code(s): Z12.11 - Encounter for screening for malignant neoplasm of colon Category: Medical Plan: He was referred again to GI for his screening colonoscopy but he was not able to keep his precolonoscopy appointment last month as he supposedly got busy with work and had to cancel his appt. He is requesting for a Colguard test at this time as he is finding it very hard to take time off from work so he has not yet rescheduled his GI appt. Patient states that he has no increased personal or family risks for colon cancer - will try to at least have him get a Cologuard test done for colon cancer screening Plan To return in 6 months for his next annual physical examination Orders: Orders XR shoulder LT min 2V Today M25.512 - Pain in left shoulder Referrals Cologuard Test Z12.11 - Encounter for screening for malignant neoplasm of c olon, Z12.12 - Encounter for screening for malignant neoplasm of rectum
[2025-06-08 16:36] VITALS: BP 118/60; PULSE 83; O2SAT 95; BMI 26.5
--- OUTSIDE RECORDS SUMMARY | 2025-06-08 16:52 | XMS_ITS | Clinical Summary ---
Author Organization [facility] it Address [address] [place] [address] Care Team Providers Care Mental Health Program Manager Name Role Phone Robert Sr MD Primary [...] Panel) 09/11/2022 Colorectal Cancer Screening: Colonoscopy 09/11/2022 HIV Screening 09/11/2022 Hepatitis C Screening 09/11/2022 Social Influencers of Health Screening 09/11/2022 COVID-19 Vaccine (1 - 2023-2 5 season) 2024 Depression Screening 10/14/2024 Influenza Vaccine (#1) 2025 07/24/2016 DTaP,Tdap,and Td Vaccines (2 - Td [...] age to complete this topic Care Teams Mental Health Program Manager Relationship Specialty Start Date End Date Robert Sr MD [address] [place] [address] [address] [place] PCP - General Internal Medicine 08/27/18
== END 2025-06-08 17:42 | disposition home or self-care (01) ==
LOC: HO.HMCH 16:29
PROVIDERS: PCP Internal Medicine; Visit Provider Internal Medicine
DX: J41.1 Mucopurulent chronic bronchitis (principal); R03.0 Elevated blood-pressure reading, without diagnosis of hypertension; E55.9 Vitamin D deficiency, unspecified; M25.512 Pain in left shoulder; F17.200 Nicotine dependence, unspecified, uncomplicated; Z12.11 Encounter for screening for malignant neoplasm of colon

== ENCOUNTER → 2025-06-08 16:28 | Outpatient (BNVA) | payer OTHER, SELFPAY | PROVIDERS: PCP Internal Medicine; Visit Provider Internal Medicine | DX: M25.512 Pain in left shoulder (principal); J41.1 Mucopurulent chronic bronchitis; R03.0 Elevated blood-pressure reading, without diagnosis of hypertension; E55.9 Vitamin D deficiency, unspecified; F17.210 Nicotine dependence, cigarettes, uncomplicated | CPT/HCPCS: 99212 ==

== ENCOUNTER 2025-06-12 08:15 | Outpatient (REF) | payer OTHER, SELFPAY ==
--- NOTE | ~2025-06-12 | XR_ITS ---
EXAMINATION: XR SHOULDER, LEFT CLINICAL INFORMATION: M25.512 - Pain in left shoulder COMPARISON: None available. TECHNIQUE: AP external rotation, Grashey, scapular Y, and axillary views of the left shoulder. FINDINGS: Normal bone mineralization. No fracture, dislocation, or suspicious bone lesion. Normal alignment. The glenohumeral joint is normal. The AC joint demonstrates moderate superior and undersurface spurring. There is a type II acromion. No undersurface spurring. The subacromial space is preserved. Remainder of the soft tissue and bony structures appear normal. XR/XR shoulder LT min 2V IMPRESSION: 1. No acute bony abnormalities of the left shoulder. 2. Moderate arthritic spurring of the AC joint. Electronically signed by: Jordon Liu MD 06/15/2025 08:45 AM EDT
--- OUTSIDE RECORDS SUMMARY | 2025-06-12 08:27 | XMS_ITS | Clinical Summary ---
Author Organization [facility] it Address [address] [place] [address] Care Team Providers Care Printing Manager Name Role Phone Robert Sr MD [...] age to complete this topic Care Teams Printing Manager Relationship Specialty Start Date End Date Robert Sr MD [address] [place] [address] [address] [place] PCP - General Internal Medicine 08/27/18
[2025-06-12 08:40] LABS: MANUAL DIFF FLAG NO
[2025-06-12 08:56] LABS: Hematocrit 42.3 % (42.0-52.0); Hemoglobin 14.2 g/dl (14.0-18.0); Imm Gran Abs Auto 0.04 X10*3/uL (0.00-0.03); Imm Gran Pct Auto 0.4 % (0.0-0.4); Lymphocytes Absolute Auto 3.3 X10*3/uL (1.2-4.9); Mean Corpuscular HGB Conc 33.6 g/dl (31.0-36.0); Mean Corpuscular Hemoglobin 30.0 pg (27.0-33.0); Mean Corpuscular Volume 89.4 fL (80.0-98.0); NRBC Abs Auto 0.000 X10*3/uL (0.0-0.012); NRBC Pct Auto 0.0 /100WBC (0.0-0.2); Platelet Count 224 X10*3/uL (160-400); Red Blood Count 4.73 X10*6/uL (4.60-5.80); White Blood Count 9.3 X10*3/uL (4.8-10.8)
[2025-06-12 09:49] LABS: Alanine Aminotransferase 12 U/L (0-40); Albumin Level 4.4 g/dL (3.5-5.0); Alkaline Phosphatase 57 U/L (39-117); Anion Gap 12 (12-20); Aspartate Amino Transferase 18 U/L (5-37); Blood Urea Nitrogen 13 mg/dL (9-16); Calcium 9.2 mg/dL (8.4-10.2); Carbon Dioxide 25 mmol/L (22-29); Chloride 107 mmol/L (96-108); Cholesterol 174 mg/dL (<200); Estimated Glomerular Filt Rate > 60; HDL Cholesterol 42 mg/dL (>40); Potassium 3.9 mmol/L (3.3-5.1); Sodium 140 mmol/L (135-145); Total Protein 7.5 g/dL (6.5-8.0); Triglycerides 99 mg/dL (<150)
[2025-06-12 09:52] LABS: Prostate Specific Antigen 0.81 ng/mL (<0.05-4.0)
[2025-06-12 10:12] LABS: Appearance Urine Clear; Glucose Urine UA Negative (Negative); PH 6.5 (5.0-9.0); Specific Gravity - Urine 1.025 (1.005-1.025); UMIC TRIGGER UACC YES
== END 2025-06-12 08:16 | disposition home or self-care (01) ==
LOC: HO.LAB 08:15
PROVIDERS: PCP Internal Medicine; Visit Provider Internal Medicine
DX: Z00.00 Encounter for general adult medical examination without abnormal findings (principal); N40.0 Benign prostatic hyperplasia without lower urinary tract symptoms; E78.00 Pure hypercholesterolemia, unspecified; D64.9 Anemia, unspecified; E55.9 Vitamin D deficiency, unspecified; M25.512 Pain in left shoulder; R30.0 Dysuria
CPT/HCPCS: 36415; 73030; 80053; 80061; 81001; 81003; 82306; 84153; 84443; 85025

== ENCOUNTER → 2025-06-12 08:42 | Outpatient (BNV) | payer OTHER, SELFPAY | PROVIDERS: PCP Internal Medicine; Visit Provider Radiology Diagnostic Radiology | DX: M19.012 Primary osteoarthritis, left shoulder (principal) | CPT/HCPCS: 73030 ==